=== PATIENT | female | born 1945 | race Caucasian/White ===

== ENCOUNTER → 2018-09-10 12:15 | Outpatient (CLI) | payer MEDICARE, OTHER, SELFPAY ==
[2018-09-10 12:44] LABS: Blood Urea Nitrogen 12 mg/dL (7-17); Estimated Glomerular Filt Rate > 60.0 mL/min (>60)
--- NOTE | 2018-09-10 12:45 | DI.CT.S_ITS ---
PROCEDURE: CT CHEST ABD PEL W CON INDICATIONS: Breast cancer staging TECHNIQUE: After the administration of oral and intravenous contrast, 5 mm thick sections acquired from the lung apices to the symphysis. 5 mm coronal and sagittal reformats were performed, with additional 7 mm coronal MIP reformats through the lungs. For radiation dose reduction, the following was used: automated exposure control, adjustment of mA and/or kV according to patient size. COMPARISON: None. FINDINGS: Image quality: Excellent. CHEST: Lungs and pleura: There is mild biapical scarring. Dependent atelectasis in posterior aspect of bilateral lung talbert is seen. Scarring/atelectasis is also seen scattered in the periphery of bilateral lung bases. 4 mm in soft tissue density nodule is seen in posterior medial aspect of right lower lobe series 3 image 32. No other discrete pulmonary nodule or mass is seen No pleural effusions or pneumothorax. Central and peripheral airways appear patent and normal in caliber. Mediastinum: Heart size is normal. No pericardial effusion. No mediastinal or hilar adenopathy by size criteria. Thoracic aorta and central pulmonary arteries are normal in size. Esophagus is normal in caliber. Moderate hiatal hernia. Chest wall: There is no left axillary adenopathy. No supraclavicular adenopathy. 4.8 x 3 cm soft tissue mass is noted in the right anterior chest wall deep to lateral right pectoralis major muscle with central area of necrosis. Prominent right axillary lymph nodes are seen measures up to 1.3 cm in short axis diameter. Thyroid gland is within normal limits. ABDOMEN: Solid organs: Liver is normal in size and enhancement. Gallbladder is within normal limits. Biliary system is non dilated. Pancreas enhances normally. Spleen is normal in size and enhancement. No adrenal nodules. Kidneys demonstrate normal size and enhancement, without hydronephrosis. Peritoneum and bowel: Bowel loops demonstrate normal wall thickness and caliber. No free fluid or air. Moderate hiatal hernia is seen. Nodes and vessels: No retroperitoneal or mesenteric adenopathy by size criteria. Aorta and inferior vena cava are normal in size. Miscellaneous: Supraumbilical hernia is seen containing a segment of mid transverse colon. No evidence of incarceration. PELVIS: Genitourinary: Bladder wall thickness is normal. Miscellaneous: There is no inguinal adenopathy. Bilateral inguinal hernias are seen containing fat only. Bones: No suspicious bony lesions. No vertebral body compression fractures. IMPRESSION: 1. 4.8 x 3 cm necrotic mass in lateral right anterior chest wall deep to right pectoralis major muscle, likely representing malignancy related to patient's known breast cancer. Enlarged lymph nodes seen in the right axilla suggestive of metastatic adenopathy. 2. No mediastinal adenopathy. No abdominal or pelvic adenopathy. 3. Biapical scarring and scattered scarring/atelectasis in bilateral lung talbert. A 4 mm nodular density in posterior medial aspect of left lower lobe right lower lobe, which may represent benign nodule. Metastatic lesion cannot be excluded. A followup study in 6 months is recommended for evaluation of stability. 4. No evidence of metastatic disease within abdomen or pelvis. Moderate-sized hiatal hernia. No free fluid or free air. Ventral hernia containing a segment of transverse colon, no evidence of incarceration. Bilateral inguinal hernia containing fat only. Dictated by: Von Murray M.D. on 09/10/2018 at 14:22 Approved by: Von Murray M.D. on 09/10/2018 at 14:31
== END ==
PROVIDERS: PCP Physician Assistant; Visit Provider Internal Medicine Hematology & Oncology
DX: C50.911 Malignant neoplasm of unspecified site of right female breast (principal); R22.2 Localized swelling, mass and lump, trunk; R59.0 Localized enlarged lymph nodes; J98.4 Other disorders of lung; K44.9 Diaphragmatic hernia without obstruction or gangrene
CPT/HCPCS: 36415; 71260; 74177; 82565; 84520; Q9967

== ENCOUNTER 2018-09-11 14:13 | Day surgery (SDC) | payer MEDICARE, OTHER, SELFPAY ==
[2018-09-09 09:21] VITALS: BMI 26.8
--- NOTE | 2018-09-11 | DI.RAD.S_ITS ---
PROCEDURE: XR CHEST 1V INDICATIONS: PORT A CATH INSERTION TECHNIQUE: One view of the chest was acquired. COMPARISON: None. FINDINGS: A single fluoroscopy image demonstrates the tip of a catheter in the area of SVC. IMPRESSION: The tip of the central venous catheter is in the area of SVC. Dictated by: Lizz Robledo M.D. on 09/11/2018 at 16:58 Approved by: Lizz Robledo M.D. on 09/11/2018 at 17:02
--- NOTE | 2018-09-11 | DI.RAD.S_ITS ---
PROCEDURE: XR CHEST 1V INDICATIONS: POST OP PORT A CATH INSERTION TECHNIQUE: One view of the chest was acquired. COMPARISON: [facility], CR, XR CHEST 1V, 09/11/2018, 16:29. FINDINGS: Surgical changes and devices: Left chest wall Port-A-Cath with tip projecting to the mid SVC. Lungs and pleura: No pleural effusions or pneumothorax. Lungs are clear. Mediastinum: Mediastinal contours appear normal. Heart size is normal. Bones and chest wall: No suspicious bony lesions. Overlying soft tissues appear unremarkable. IMPRESSION: No acute cardiopulmonary disease process. Dictated by: Estela Valdez MD, PhD on 09/11/2018 at 16:23 Approved by: Estela Valdez MD, PhD on 09/11/2018 at 16:24
[2018-09-11 15:05] VITALS: BP 154/73; PULSE 80; RESP 18; TEMP 36.6; O2SAT 98; BMI 26.6
[2018-09-11] MEDS: LACTATED RINGERS 1,000 ML 42 ML IV (15:05)
--- NOTE | 2018-09-11 15:40 | SUR.OPER ---
Supine on padded OR bed, head on pillow, left arm padded and tucked at side, legs uncrossed, safety belt at thigh, tape over blanket over lower legs .
[2018-09-11] MEDS: CEFAZOLIN 2 GM/100 ML FROZ.PIGGY IV (16:08)
[2018-09-11] MEDS: SODIUM CHLORIDE 0.9% FLUSH 10 ML IV (16:26)
[2018-09-11] MEDS: LIDOCAINE 1% W/EPI INJ 20 ML INJ (16:39)
[2018-09-11] MEDS: BUPIVACAINE 0.5% (PF) VIAL 30 ML INJ (16:39)
--- NOTE | 2018-09-11 16:46 | PM.OP.1 ---
Operative Date/Time/Diagnoses Date of procedure: 09/11/18 Time of procedure: 16:46 Pre-op diagnosis: Locally advanced breast cancer Post-op diagnosis: same Procedure & Clinicians Procedure: Left Subclavian Power Port Placement Same procedure as scheduled: Yes Indications: Locally advanced breast cancer Surgeon: Chasity Wilson Click Yes if Unassisted: Yes Anesthesia Type: MAC +/- (Goetter) and Local Operative Notes Findings: Power port in good position in the superior vena cava Closure Type: primary Specimen(s): none sent Implants & Drains: Low-profile power port Estimated Blood Loss (mL): 5 Procedure in detail: After obtaining informed consent, the patient was brought to the operating room and placed in the supine position on the operating table. Following successful induction of general endotracheal anesthesia, appropriate padding of all bony prominences, and placement of appropriate monitors, the left chest was prepped and draped in a standard surgical fashion. A timeout was held per SCOAP protocol. A mixture of local anesthetics was infiltrated in the deltopectoral groove on the left side. The right subclavian vein was accessed via the Seldinger technique and a wire was gently placed into the vein. Fluoroscopy was used to verify position of the wire in the subclavian vein. We next created a pocket of approximately 2 cm inferior to the access site of the vein. This was checked for size and found to fit the port nicely. The included tunneling device was used to place the tubing and the pocket connecting it to the access site of the subclavian vein. The tubing was trimmed to an appropriate length and connected to the Port-A-Cath. The Port-A-Cath was sewn into place in the pocket using interrupted Prolene sutures. The pocket was closed in 2 layers. The dilator and introducer were then gently passed over the wire and into the subclavian vein. The wire and dilator were removed leaving only the introducer. The tubing was then placed in the introducer and the introducer removed per marketing writer's directions. The port was then flushed with saline solution and found to be functional and in good position. It was then hep-locked with 2000 units of heparin. The incision was closed in 2 layers with Vicryl and Monocryl sutures. Dermabond was applied to the skin. All sponge, needle, and instrument counts were correct at the conclusion of the case. Patient was allowed to awaken from anesthesia and taken to the post-anesthesia care unit in good condition. Complications: none Condition: stable Disposition: PACU Plan for aftercare: 1. Discharge to home 2. The port is ready for use
--- NOTE | 2018-09-11 16:49 | P.OP_ITS ---
Operative Date/Time/Diagnoses Date of procedure: 09/11/18 Time of procedure: 16:46 Pre-op diagnosis: Locally advanced breast cancer Post-op diagnosis: same Procedure & Clinicians Procedure: Left Subclavian Power Port Placement Same procedure as scheduled: Yes Indications: Locally advanced breast cancer Surgeon: Chasity Wilson Click Yes if Unassisted: Yes Anesthesia Type: MAC +/- (Goetter) and Local Operative Notes Findings: Power port in good position in the superior vena cava Closure Type: primary Specimen(s): none sent Implants & Drains: Low-profile power port Estimated Blood Loss (mL): 5 Procedure in detail: After obtaining informed consent, the patient was brought to the operating room and placed in the supine position on the operating table. Following successful induction of general endotracheal anesthesia, appropriate padding of all bony prominences, and placement of appropriate monitors, the left chest was prepped and draped in a standard surgical fashion. A timeout was held per SCOAP protocol. A mixture of local anesthetics was infiltrated in the deltopectoral groove on the left side. The right subclavian vein was accessed via the Seldinger technique and a wire was gently placed into the vein. Fluoroscopy was used to verify position of the wire in the subclavian vein. We next created a pocket of approximately 2 cm inferior to the access site of the vein. This was checked for size and found to fit the port nicely. The included tunneling device was used to place the tubing and the pocket connecting it to the access site of the subclavian vein. The tubing was trimmed to an appropriate length and connected to the Port-A-Cath. The Port-A-Cath was sewn into place in the pocket using interrupted Prolene sutures. The pocket was closed in 2 layers. The dilator and introducer were then gently passed over the wire and into the subclavian vein. The wire and dilator were removed leaving only the introducer. The tubing was then placed in the introducer and the introducer removed per horse riding coach or instructor's directions. The port was then flushed with saline solution and found to be functional and in good position. It was then hep- locked with 2000 units of heparin. The incision was closed in 2 layers with Vicryl and Monocryl sutures. Dermabond was applied to the skin. All sponge, needle, and instrument counts were correct at the conclusion of the case. Patient was allowed to awaken from anesthesia and taken to the post-anesthesia care unit in good condition. Complications: none Condition: stable Disposition: PACU Plan for aftercare: 1. Discharge to home 2. The port is ready for use
[2018-09-11 16:50] VITALS: BP 134/61; PULSE 76; RESP 14; TEMP 36.3; O2SAT 95
--- NOTE | 2018-09-11 16:53 | SUR.PHASEII ---
Phase 2 done in PACU due to need for XRay post op.
[2018-09-11 16:55] VITALS: BP 129/65; PULSE 76; RESP 15; O2SAT 100
[2018-09-11 17:05] VITALS: BP 136/64; PULSE 68; RESP 20; O2SAT 100
--- NOTE | 2018-09-16 16:24 | PM.HP.1 ---
History of Present Illness Date Patient Seen: 09/11/18 Time Patient Seen: 10:25 Chief complaint: [id number] PORT-A-CATH PLACEMENT Narrative: Very pleasant and unfortunate 73-year-old lady who presents today for Port-A-Cath placement. She was recently found to have locally advanced breast cancer involving the right breast and chest wall. She has already spoken with Dr Rodas and is planning for chemotherapy. She will need a Port-A-Cath or other [id number]-Bbpo to facilitate this process. Patient History Medical History Breast cancer, right breast (Acute 08/2018) History of headache (Chronic) Hyperlipidemia (Chronic) Hypertension (Chronic) Hypothyroidism (Chronic) Pain (Chronic) Former smoker (Resolved) Surgical menopause (Resolved) Surgical History History of hysterectomy (Resolved ~1992) History of left cataract surgery (Resolved 11/25/15) History of right cataract surgery (Resolved 03/23/16) Status post hernia repair (Resolved 01/2015) Status post hernia repair (Resolved 03/2014) Status post hernia repair (Resolved 08/2013) Family & Social History Family History: Reviewed 09/16/18 by Chasiyt Wilson MD Social History: household members spouse Tobacco & Substance use: Smoking Status Former smoker alcohol intake current alcohol intake frequency 0-2 drinks per day Substance Use Type does not use Meds Home Medications Medication Instructions Recorded Confirmed Type ASPIRIN (#ASPIRIN) 325 mg PO Q DAY #0 08/19/12 09/13/18 History CHOLECALCIFEROL (VITAMIN D) 2,000 iu PO Q DAY #0 08/19/12 09/13/18 History GLUC PETERSEN DIPO CH/VLADIMIR PETERSEN/C/TORIE 1 cap PO Q DAY #0 08/19/12 09/13/18 History (Glucosamine-Chondroitin Capsul) dorzolamide-timolol [Cosopt] 1 drp OPHTH BID #0 08/19/12 09/13/18 History FOLIC ACID/VIT A/VIT B1/VIT 1 tab PO Q DAY #0 08/20/12 09/13/18 History (#MULTIVITAMIN) Diphenhydramine Hydrochloride 1 - 2 cap PO Q DAY PRN #0 08/21/12 09/13/18 History (BENADRYL) ibuprofen [Advil] 400 mg PO PRN PRN #0 02/24/13 09/13/18 History simvastatin [Zocor] 20 mg PO HS #90 tab 09/26/17 09/13/18 Rx triamterene-hydrochlorothiazid 1 cap PO Q DAY #90 cap 09/26/17 09/13/18 Rx [Dyazide] levothyroxine [Synthroid] 0.175 mg PO QDAY #90 tab 03/04/18 09/13/18 Rx Calcium/Vitamin D3 See Label Instructions .ROUTE 08/01/18 09/13/18 History .COMPLEX lidocaine-prilocaine See Label Instructions .ROUTE 09/11/18 09/13/18 Rx .COMPLEX #30 gram oxycodone-acetaminophen [Percocet] 1 tab PO Q4-6H PRN #20 tab 09/11/18 09/13/18 Rx Allergies Allergy/AdvReac Type Severity Reaction Status Date / Time adhesive tape [ADHESIVE TAPE] AdvReac Intermediate ITCHY RASH Verified 09/09/18 09:24 IF LEFT ON TOO LONG Review of Systems Review of Systems All systems reviewed & are unremarkable except as noted in HPI and below Exam Vital Signs (past 8 hours): Oxygen Delivery Method Room Air Narrative Exam Narrative: Pleasant elderly lady in no distress HEENT: Normocephalic and atraumatic, pupils equal round reactive to light accommodation with anicteric sclera Lungs: Clear to auscultation bilaterally Heart: Regular rate and rhythm without murmur rub or gallop Abdomen: Soft and nontender with active bowel sounds Extremities: Warm well perfused Assessment & Plan Plan: Assessment/Plan Narrative: Pleasant 73-year-old lady with locally advanced right breast cancer. We discussed the risks and benefits of right Port-A-Cath placement and the patient expressed a desire to complete the procedure today.
--- NOTE | 2018-09-25 15:33 | PC.NURSE ---
Pt called to report that she has not yet been schd for and ultra sound bx and marker placement. She stated she had reached out to Dr Anderson office but has not heard anything as of yet. After much searching, it was discovered that Dr Wilson who she saw has ordered the procedure, but has not yet been scheduled. The US that is scheduled for 09/27 was previously ordered by Lisha Mckeon as a follow up from an abnormal Mammo on 09/09. I explained this to her and that Lisha Mckeon would need to cancel this since she placed the original order. I also told her that radiology would be calling her with her appt for the procedure Dr Wilson ordered
== END 2018-09-11 17:29 | disposition home or self-care (01) ==
PROVIDERS: PCP Physician Assistant; Visit Provider Surgery
PROC: (CPT 36561; principal; 2018-09-11 15:00)
DX: C50.911 Malignant neoplasm of unspecified site of right female breast (principal); Z45.2 Encounter for adjustment and management of vascular access device; Z87.891 Personal history of nicotine dependence; E78.5 Hyperlipidemia, unspecified; I10 Essential (primary) hypertension; E03.9 Hypothyroidism, unspecified
CPT/HCPCS: 36561; 71045; 76000; C1788; J0690; J1644; J2704

== ENCOUNTER → 2018-09-20 14:33 | Outpatient (CLI) | payer MEDICARE, OTHER, SELFPAY ==
--- NOTE | 2018-09-20 11:13 | DI.MRI.S_ITS ---
PROCEDURE: MR ABDOMEN WO/W CON INDICATIONS: evaluate liver lesion TECHNIQUE: Coronal HASTE, axial 2D FLASH in- and [id number]; axial breath-hold T2 FSE. Dynamic axial VIBE during the administration of contrast; post-contrast coronal VIBE or 2D FLASH with fat saturation from the hepatic dome to the iliac crests. Optional diffusion weighted imaging and ADC may be performed. COMPARISON: [facility], MR, MR BREAST BILATERAL WITH CAD, 09/17/2018, 10:49. [facility], CT, CT CHEST ABD PEL W CON, 09/10/2018, 13:09. FINDINGS: Image quality: Excellent. Lung bases: No basal pleural effusions. Heart size is normal. Solid organs: Liver is normal in size and enhancement. An 8 mm diameter hypervascular lesion is present within hepatic segment IVB. This demonstrates hypervascularity on the arterial phase, portal venous phase, and delayed phase studies. This lesion is hyperintense on the diffusion weighted study and demonstrates T2 hyperintensity as well. Gallbladder is unremarkable. Biliary system is non dilated. Pancreas is normal in morphology. Spleen is normal in size and enhancement. No adrenal nodules. Both kidneys demonstrate normal size and enhancement, without hydronephrosis. Nodes and vessels: No retroperitoneal or mesenteric adenopathy by size criteria. Aorta and inferior vena cava are normal in size. Bowel and peritoneum: Unenhanced bowel loops are normal in caliber. No free fluid. Bones and soft tissues: No ventral hernias. Bone marrow is normal in overall signal. IMPRESSION: 1. Small hepatic hemangioma within hepatic segment IVB as above. No findings to suggest hepatic metastasis. Dictated by: Megan Tapia M.D. on 09/20/2018 at 17:10 Approved by: Megan Tapia M.D. on 09/20/2018 at 17:20
== END ==
PROVIDERS: PCP Physician Assistant; Visit Provider Internal Medicine Hematology & Oncology
DX: C50.911 Malignant neoplasm of unspecified site of right female breast (principal); K76.9 Liver disease, unspecified
CPT/HCPCS: 74183; A9579

== ENCOUNTER → 2018-09-27 14:35 | Outpatient (CLI) | payer MEDICARE, OTHER, SELFPAY ==
--- NOTE | 2018-09-27 14:36 | DI.US.S_ITS ---
ULTRASOUND OF RIGHT BREAST: 09/27/2018 CLINICAL: Patient returns for additional imaging over a suspected mass in the right breast. Comparison is made to exams dated: 09/17/2018 breast MRI - [facility], 08/20/2018 mammogram, and 08/20/2018 ultrasound - [facility]. Real-time ultrasound of the right breast was performed on the areas of interest. Wallace scale images of the real-time examination were reviewed. IMPRESSION: SUSPICIOUS OF MALIGNANCY There is no sonographic abnormality seen in the right breast to correspond with the breast MRI finding at 4 o'clock. Based on MRI findings, neoplasm cannot be excluded. If breast conservation is desired, MRI guided biopsy is recommended to further characterize this finding and exclude multicentric disease. This exam was interpreted at Station ID: [id number]. Electronically Signed By: Megan Tapia M.D. lk/:09/27/2018 16:37:49 letter sent: Biopsy Required Ultrasound BI-RADS: 4 Suspicious abnormality
== END ==
PROVIDERS: PCP Physician Assistant; Visit Provider Physician Assistant
DX: R92.8 Other abnormal and inconclusive findings on diagnostic imaging of breast (principal); N63.14 Unspecified lump in the right breast, lower inner quadrant
CPT/HCPCS: 76642

== ENCOUNTER → 2018-10-02 12:39 | Outpatient (CLI) | payer MEDICARE, OTHER, SELFPAY ==
--- NOTE | 2018-10-02 12:41 | DI.ECHO.S_ITS ---
Echocardiogram Report + + :Name: KATHLEEN BROCK Study Date: 10/02/2018 Height: 65 in : :[facility] Weight: 150 lb: : Gender: Female BSA: 1.8 m2 : :: 1945 Age: 73 yrs : :Reason For Study: PRE CHEMO : : Performed By: Roshni De La Torre : :Referring: GUADALUPE YATES : + + Interpretation Summary The left ventricle is normal in size. The ejection fraction is estimated to be 60-65%. The right ventricle is mildly dilated. The right ventricular systolic function is normal. No significant valvular pathology. There is no pericardial effusion. Procedure: A two-dimensional transthoracic echocardiogram with color flow and Doppler was performed. The study quality was technically adequate. There is no prior echocardiogram noted for this patient. A contrast injection of Definity was performed to improve assessment of LV function. The heart rate ranged between 73-80 bpm during the study. Left Ventricle: The left ventricle is normal in size. Proximal septal thickening is noted. There is no echo evidence for significant left ventricular outflow tract obstruction. There is no thrombus. The ejection fraction is estimated to be 60-65%. There are no focal wall motion abnormalities. Diastolic parameters suggest a relaxation abnormality of the left ventricle, consistent with probable normal filling pressures. Right Ventricle: The right ventricle is mildly dilated. The right ventricular systolic function is normal. Atria: Both atria are normal in size. There is no Doppler evidence for an interatrial shunt. Mitral Valve: The mitral valve is normal in structure and function. There is trace mitral regurgitation. Aortic Valve: The aortic valve is trileaflet. The aortic valve opens well. There is no aortic valve stenosis. Tricuspid Valve: The tricuspid valve is normal in structure and function. Pulmonary artery pressures cannot be estimated because of the lack of a measurable TR jet velocity. There is trace tricuspid regurgitation. Pulmonic Valve: The pulmonic valve is normal in structure and function. There is a trace or physiologic amount of pulmonic regurgitation. Great Vessels: The aortic root is normal size. The ascending aorta is normal in size. The aortic arch is normal in size. The pulmonary artery is normal size. The IVC is of normal diameter and collapses greater than 50% with a sniff. This suggests a low right atrial pressure of 3 mm Hg. Pericardium/ Pleura There is no pericardial effusion. There is an anterior echo-free space consistent with a fat pad. There is no pleural effusion. MMode/2D Measurements & Calculations LVIDd: 4.4 cm LVOT diam: 2.2 cm LVIDs: 3.4 cm Ao root diam: 3.3 cm FS: 23.4 % asc Aorta Diam: 3.4 cm IVSd: 1.0 cm Ao Arch Diam (Prox Trans): 2.3 cm LVPWd: 0.83 cm LV busby. diameter/BSA (cm/m^2): 2.5 LV sys. diameter/BSA (cm/m^2): 1.9 LA A2 area: 17.9 cm2 RA long axis: 4.0 cm LA A4 area: 15.4 cm2 RA area: 14.2 cm2 LA length (vol): 4.7 cm RA vol: 42.6 ml LA vol: 49.9 ml RA : 24.3 ml/m2 LA vol index: 28.5 ml/m2 IVC diam: 1.4 cm RVD1 (basal): 2.5 cm TAPSE: 1.7 cm Doppler Measurements & Calculations Ao V2 max: 96.4 cm/sec LVOT Max Howard: 92.1 cm/sec Ao V2 mean: 74.9 cm/sec LV V1 max P.4 mmHg Ao max P.7 mmHg LV V1 VTI: 19.8 cm Ao mean P.4 mmHg LAM(I,D): 3.7 cm2 Ao V2 VTI: 20.8 cm LAM(V,D): 3.7 cm2 sev ratio: 0.96 LAM indexed to BSA (cm^2/m^2): 2.1 MV E max howard: 44.1 cm/sec MV A max howard: 87.9 cm/sec MV E/A: 0.50 Med Peak E' Howard: 6.0 cm/sec E/E' med: 7.3 Lat Peak E' Howard: 5.8 cm/sec E/E' lat: 7.6 E/e' average: 7.5 MV dec time: 0.28 sec _ Reading Physician:ARACELI
== END ==
PROVIDERS: PCP Physician Assistant; Visit Provider Internal Medicine Hematology & Oncology
DX: C50.911 Malignant neoplasm of unspecified site of right female breast (principal); Z92.21 Personal history of antineoplastic chemotherapy
CPT/HCPCS: 93306

== ENCOUNTER → 2018-11-22 10:50 | Outpatient (CLI) | payer MEDICARE, OTHER, SELFPAY ==
--- NOTE | 2018-11-22 11:10 | DI.CT.S_ITS ---
PROCEDURE: CT CHEST W CON INDICATIONS: restaging TECHNIQUE: After the administration of intravenous contrast, 5 mm thick sections acquired from the pulmonary apices to the posterior costophrenic angles. 7 mm thick coronal and sagittal MIP reformats were acquired. For radiation dose reduction, the following was used: automated exposure control, adjustment of mA and/or kV according to patient size. COMPARISON: [facility], CT, CT CHEST ABD PEL W CON, 09/10/2018, 13:09. FINDINGS: Image quality: Excellent. Lungs and pleura: Biapical scarring is again seen. Previously described 4 mm soft tissue density nodule in posterior medial aspect of right lower lobe is unchanged in size and appearance. Dependent atelectasis in posterior aspect of bilateral lung talbert are seen. Ill-defined scarring/atelectasis scattered in the periphery of bilateral lung bases are again seen. No new pulmonary nodule or mass is seen. No pleural effusions or pneumothorax. Central and peripheral airways are patent and normal in caliber. Mediastinum: Heart size is normal. No pericardial effusion. No mediastinal or hilar adenopathy by size criteria. Thoracic aorta and central pulmonary arteries are normal in size. Esophagus is normal in caliber. Small to moderate hiatal hernia is present. Bones and chest wall: Left chest wall Port-A-Cath is seen. No supraclavicular lymphadenopathy. No left axillary adenopathy. Previously described 4.8 x 3 cm soft tissue mass in right anterior chest wall deep to lateral right pectoralis major muscle is again seen now measures 3.8 x 2.4 cm in size. Previously described prominent right axillary lymph nodes are smaller in size and now measures up to 5 mm in size. No suspicious bony lesions. No vertebral body compression fractures. Thyroid gland is within normal limits. Abdomen: Visualized upper abdominal solid organs appear normal. Upper abdominal bowel loops are normal in caliber. IMPRESSION: 1. Stable 4 mm right lower lobe pulmonary nodule. No new pulmonary nodule or mass is seen. Dependent atelectasis and scarring in bilateral lung talbert. No pleural effusion or pneumothorax. Airways patent. 2. Interval resolution of previously noted right axillary lymphadenopathy. Interval decrease in size of patient's known right anterior chest wall soft tissue mass, now measures 3.8 x 2.4 cm in size. 3. No mediastinal or hilar adenopathy. Dictated by: Von Murray M.D. on 11/22/2018 at 14:49 Approved by: Von Murray M.D. on 11/22/2018 at 14:56
== END ==
PROVIDERS: PCP Physician Assistant; Visit Provider Nurse Practitioner Gerontology
DX: C50.911 Malignant neoplasm of unspecified site of right female breast (principal); R91.1 Solitary pulmonary nodule
CPT/HCPCS: 71260; Q9967

== ENCOUNTER → 2019-01-03 11:42 | Outpatient (CLI) | payer MEDICARE, OTHER, SELFPAY ==
--- NOTE | 2019-01-03 11:43 | DI.CT.S_ITS ---
PROCEDURE: CT CHEST W CON INDICATIONS: Restaging breast cancer TECHNIQUE: After the administration of intravenous contrast, 5 mm thick sections acquired from the pulmonary apices to the posterior costophrenic angles. 7 mm thick coronal and sagittal MIP reformats were acquired. For radiation dose reduction, the following was used: automated exposure control, adjustment of mA and/or kV according to patient size. COMPARISON: [facility], US, US BREAST RT LIMITED, 09/27/2018, 15:23. [facility], CT, CT CHEST ABD PEL W CON, 09/10/2018, 13:09. [facility], CT, CT CHEST W CON, 11/22/2018, 11:05. FINDINGS: Image quality: Excellent. Lungs and pleura: No acute air space opacities. No pleural effusions or pneumothorax. Central and peripheral airways are patent and normal in caliber. Mediastinum: Heart size is normal. No pericardial effusion. No mediastinal or hilar adenopathy by size criteria. Thoracic aorta and central pulmonary arteries are normal in size. Esophagus is normal in caliber. No hiatal hernia. Bones and chest wall: No suspicious bony lesions. The soft tissue metastases in the subpectoral region of the right chest superiorly has diminished in size, previously measuring 4.8 x 3.0 cm 09/10/18 and currently measuring 3.5 x 1.9 cm. This is best seen centered on series 2 image 17. The adjacent moderately enlarged lymph nodes at the right axilla have resolved. Note is made of a Port-A-Cath from left sided approach extending in the normal position into the origin of the superior vena cava. No vertebral body compression fractures. No axillary or supraclavicular adenopathy by size criteria. Thyroid gland appears normal where well visualized. Abdomen: Visualized upper abdominal solid organs appear normal. Upper abdominal bowel loops are normal in caliber. IMPRESSION: Significant reduction in size of a subpectoral right chest ovoid mass lesion previously identified in August of 2018. Adjacent adenopathy on the right at the anterior axilla has resolved. No new osseous or soft tissue metastatic disease is seen. Port-A-Cath from a left-sided approach extends in normal position to the origin of the superior vena cava. Dictated by: Darryl Bhakta M.D. on 01/03/2019 at 12:24 Approved by: Darryl Bhakta M.D. on 01/03/2019 at 12:33
== END ==
PROVIDERS: PCP Physician Assistant; Visit Provider Nurse Practitioner Gerontology
DX: C50.911 Malignant neoplasm of unspecified site of right female breast (principal); C79.89 Secondary malignant neoplasm of other specified sites
CPT/HCPCS: 71260

== ENCOUNTER → 2019-03-10 13:53 | Outpatient (CLI) | payer MEDICARE, OTHER, SELFPAY ==
--- NOTE | 2019-03-10 14:05 | DI.CT.S_ITS ---
PROCEDURE: CT CHEST ABD PEL W CON INDICATIONS: BREAST CANCER, RESTAGING AFTER CHEMO TECHNIQUE: After the administration of oral and intravenous contrast, 5 mm thick sections acquired from the lung apices to the symphysis. 5 mm coronal and sagittal reformats were performed, with additional 7 mm coronal MIP reformats through the lungs. For radiation dose reduction, the following was used: automated exposure control, adjustment of mA and/or kV according to patient size. COMPARISON: [facility], CT, CT CHEST W CON, 11/22/2018, 11:05. [facility], CT, CT CHEST W CON, 01/03/2019, 11:43. [facility], CT, CT CHEST ABD PEL W CON, 09/10/2018, 13:09. FINDINGS: Image quality: Excellent. CHEST: Lungs and pleura: There is stable appearance of mild stranding within the anterior inferior border of the lower lungs bilaterally, medial segment right middle lobe and lingular segment left upper lobe margins. There is, however, a new finding within the more superior medial aspect of the right middle lobe medial segment where a masslike structure appears to have developed within the lung parenchyma itself abutting the anterior pleural surface, measuring up to 1.0 cm AP and 1.7 cm transverse, with a craniocaudad length of approximately 1.2 cm. This area was normal on CT scanning 01/03/19. No pleural effusions or pneumothorax. Central and peripheral airways appear patent and normal in caliber. No pulmonary metastatic disease is suspected. Mediastinum: Heart size is normal. No pericardial effusion. No mediastinal or hilar adenopathy by size criteria. Thoracic aorta and central pulmonary arteries are normal in size. Esophagus is normal in caliber. No hiatal hernia. A Port-A-Cath from a left-sided approach extends in normal position into the superior vena cava as has been previously the case. Chest wall: No axillary or supraclavicular adenopathy by size criteria. Thyroid gland appears normal where well visualized. The subpectoral right-sided mass lesion continues to diminish in size and contrast enhancement, previously having been rounded and discrete as a metastatic mass, and bowel containing small amounts of internal calcification and measuring an estimated 2.7 cm transverse and 1.4 centimeters AP. ABDOMEN: Solid organs: Liver is normal in size and enhancement except for the finding of a subtle left lateral hepatic segment hypodensity in an area previously normal, seen on CT series 2 image 67, measuring only 1.3 cm in maximal axial dimension. Gallbladder appears normal. Biliary system is non dilated. Pancreas enhances normally. Spleen is normal in size and enhancement. No adrenal nodules. Kidneys demonstrate normal size and enhancement, without hydronephrosis. Peritoneum and bowel: Bowel loops demonstrate normal wall thickness and caliber. No free fluid or air. Nodes and vessels: No retroperitoneal or mesenteric adenopathy by size criteria. Aorta and inferior vena cava are normal in size. Miscellaneous: Again noted is a ventral hernia at the abdomen/pelvis junction through which a colon loop crosses, without evidence of incarceration or strangulation.. PELVIS: Genitourinary: Bladder wall thickness is normal. Miscellaneous: No inguinal hernias or adenopathy. A ventral hernia as discussed above. Bones: No suspicious bony lesions. No vertebral body compression fractures. IMPRESSION: 1. Slight interval reduction in size of a subpectoral right-sided chest wall metastatic lesion previously significantly larger and heterogeneously contrast enhancing. 2. New finding of a pulmonary mass like structure within the right middle lobe medial segment abutting the anterior pleural surface, centered within the periphery of the lung tissue itself rather than representing a pleural or chest wall mass. This structure is worrisome for representing pulmonary metastatic disease in this clinical circumstance. 3. A subtle new liver lesion has developed within the subcapsular left lateral hepatic segment measuring only approximately 1.3 cm in an area that had appeared normal 01/03/19. This structure may be visible by targeted single organ ultrasound. Dictated by: Darryl Bhakta M.D. on 03/10/2019 at 15:00 Approved by: Darryl Bhakta M.D. on 03/10/2019 at 15:19
== END ==
PROVIDERS: PCP Physician Assistant; Visit Provider Internal Medicine Hematology & Oncology
DX: C50.911 Malignant neoplasm of unspecified site of right female breast (principal)
CPT/HCPCS: 71260; 74177; Q9967

== ENCOUNTER → 2019-10-27 10:29 | Outpatient (CLI) | payer MEDICARE, OTHER, SELFPAY | PROVIDERS: PCP Physician Assistant; Visit Provider Physician Assistant | DX: Z12.11 Encounter for screening for malignant neoplasm of colon (principal) | CPT/HCPCS: 82274 ==

== ENCOUNTER → 2019-12-29 10:52 | Outpatient (CLI) | payer MEDICARE, OTHER, SELFPAY ==
--- NOTE | 2019-12-29 10:56 | DI.CT.S_ITS ---
PROCEDURE: CT CHEST WO CON INDICATIONS: lung nodule followup. TECHNIQUE: Noncontrast 2.0-2.5 mm thick sections acquired from the pulmonary apices to the posterior costophrenic angles. 7 mm thick axial MIP and 5 mm coronal and sagittal reformats were then acquired. A low radiation dose technique was utilized. COMPARISON: [facility], CT, CT RANDALL, 07/03/2019, 12:57. [facility], CT, CT CHEST W CON, 01/03/2019, 11:43. [facility], CT, CT CHEST ABD PEL W CON, 03/10/2019, 14:15. [facility], [place], NM PET CT FUSION SKULL 2 THIGH, 04/02/2019, 15:52. FINDINGS: Image quality: Diagnostic, given the low radiation dose technique. Lungs and pleura: There is a 5 mm nodule adjacent to a surgical clip in the right right middle lobe within the right cardiophrenic angle. On the last chest CT dated 03/10/2019, there was a 1.3 x 1.8 cm mass in the area, which is no longer present. There are new subleural infiltrates and nodules as well as subpleural septal thickening in the right anterior lung. Small subpleural nodules are also seen in lingula, unchanged, likely inflammatory/infectious in etiology. Mediastinum: Heart size is normal. No pericardial effusion. No mediastinal adenopathy by size criteria. Thoracic aorta and central pulmonary arteries are normal in size. Esophagus is normal in caliber. Small hiatal hernia. Bones and chest wall: There are multiple surgical clips in the right anterior chest wall and axilla. No suspicious bony lesions. No vertebral body compression fractures. No axillary or supraclavicular adenopathy by size criteria. Thyroid gland is normal. There is a Port-A-Cath in the left anterior chest. Abdomen: Visualized upper abdomen solid organs and bowel loops appear normal in the absence of contrast. IMPRESSION: 1. A 5 mm nodule is present adjacent to a surgical clip in the right right middle lobe within the right cardiophrenic angle. On the prior chest CT dated 03/10/2019, there was a 1.3 x 1.8 cm mass in the area, which is no longer present. 2. New subleural infiltrates and nodules as well as subpleural septal thickening in the right anterior lung, presumably secondary to post radiation changes. Recommend clinical correlation and follow. 3. Small subpleural nodules are in lingula are stable. Fleischner Society criteria for SOLID lung nodule followup. Nodule size (mm)Low-risk patientHigh-risk patient<6 (single or multiple)No routine followup.Optional CT at 12 months. 6-8 (single or multiple)CT at 6-12 months, then optional CT at 18-24 mo.CT at 6-12 months, then CT at 18-24 months. >8 (single)CT at 3 months, PET-CT, or biopsy. Same as for low-risk pts. >8 (multiple)CT at 3-6 months, then optional CT at 18-24 mo.CT at 3-6 months, then CT at 18-24 months. Fleischner Society criteria for SUB-SOLID lung nodule followup. Solitary pure ground-glass nodules<6 mm (ground glass or part solid)No followup needed. 6 mm or larger (ground glass)CT at 6-12 months to confirm persistence, then CT every 2 years until 5 years.6 mm or larger (part solid)CT at 3-6 months to confirm persistence, then annual CT until 5 years if unchanged and solid component remains <6 mm. Multiple sub-solid nodules<6 mmCT at 3-6 months, then CT consider at 2 & 4 years for high risk patients. [address] at 3-6 months. Subsequent management based on most suspicious lesions. Recommendations do not apply to lung cancer screening, patients with immunosuppression, or patients with known primary cancer. Dictated by: Lizz Robledo M.D. on 12/29/2019 at 16:11 Approved by: Lizz Robledo M.D. on 12/29/2019 at 18:34
== END ==
PROVIDERS: PCP Physician Assistant; Referring Provider Internal Medicine Hematology & Oncology; Visit Provider Internal Medicine Hematology & Oncology
DX: C50.911 Malignant neoplasm of unspecified site of right female breast (principal); R92.8 Other abnormal and inconclusive findings on diagnostic imaging of breast; K44.9 Diaphragmatic hernia without obstruction or gangrene
CPT/HCPCS: 71250

== ENCOUNTER → 2020-04-16 11:54 | Outpatient (CLI) | payer MEDICARE, OTHER, SELFPAY ==
--- NOTE | 2020-04-16 11:58 | DI.CT.S_ITS ---
PROCEDURE: CT CHEST W CON INDICATIONS: lung nodule TECHNIQUE: After the administration of intravenous contrast, 5 mm thick sections acquired from the pulmonary apices to the posterior costophrenic angles. 1 mm axial lung, 5 mm thick coronal and sagittal reformats and 7 mm axial MIP were acquired. For radiation dose reduction, the following was used: automated exposure control, adjustment of mA and/or kV according to patient size. COMPARISON: [facility], CT, CT CHEST ABD PEL W CON, 03/10/2019, 14:15. [facility], [place], [place] PET CT FUSION SKULL 2 THIGH, 04/02/2019, 15:52. [facility], CT, CT CHEST WO CON, 12/29/2019, 11:13. [facility], CT, CT CHEST W CON, 01/03/2019, 11:43. FINDINGS: Image quality: Excellent. Lungs and pleura: There is a scarlike density in the right middle lobe adjacent to surgical suture/clip. A 5 mm nodular density adjacent to the surgical clip appears unchanged. There is no recurrent mass. Previously seen subtle infiltrates are no longer present. Subpleural nodular densities in the lingula are unchanged. There are several small right lung nodules as listed below, unchanged. Nodule #1: 4 mm; RML: series 3 image 185; Nodule #2: 3 mm; RML; series 3 image 197; Nodule #3: 4 mm; RLL; series 3 image 201; Nodule #4: 3 mm; RLL; series 3 image 152; No acute air space opacities. No pleural effusions or pneumothorax. Central and peripheral airways are patent and normal in caliber. Mediastinum: Heart size is normal. No pericardial effusion. No mediastinal or hilar adenopathy by size criteria. Thoracic aorta and central pulmonary arteries are normal in size. Esophagus is normal in caliber. There is a small hiatal hernia. Bones and chest wall: No suspicious bony lesions. No vertebral body compression fractures. No axillary or supraclavicular adenopathy by size criteria. Thyroid gland is normal. Abdomen: Visualized upper abdominal solid organs appear normal. Upper abdominal bowel loops are normal in caliber. IMPRESSION: 1. Postsurgical changes in the right middle lobe with a scarlike density. No findings to suggest recurrent mass. 2. Small subcentimeter nodules in right lung are stable. 3. No mediastinal or hilar lymphadenopathy. Dictated by: Lizz Robledo M.D. on 04/16/2020 at 13:59 Transcribed by: ROGER on 04/16/2020 at 14:26 Approved by: Lizz Robledo M.D. on 04/16/2020 at 18:30
[2020-04-16 12:20] LABS: Add Manual Diff / Slide Review NO; Basophils Absolute Auto 0 /uL (0-100); Eosinophils Absolute Auto 300 /uL (0-450); Eosinophils Percent Auto 6.8 % (2-4); Hematocrit 43.7 % (36-46); Hemoglobin 15.6 g/dL (12.0-16.0); Lymphocytes Absolute Auto 800 /uL (1100-4500); Lymphocytes Percent Auto 17.3 % (25-40); Mean Corpuscular HGB Conc 35.6 % (30-36); Mean Corpuscular Hemoglobin 34.9 PG (26-34); Monocytes Absolute Auto 500 /uL (0-900); Neutrophils Absolute Auto 3200 /uL (1500-7000); Neutrophils Percent Auto 64.9 % (50-75); Platelet Count 186 X10^3/uL (150-400); Red Blood Cell Count 4.46 X10^6/uL (4.0-5.2); Red Cell Distribution Width 13.1 % (11.6-14.8); White Blood Cell Count 4.9 X10^3/uL (4.5-11.0)
[2020-04-16 12:34] LABS: Alanine Aminotransferase 25 IU/L (<35); Albumin 4.5 g/dL (3.5-5.0); Albumin Globulin Ratio 1.7 (1.0-2.8); Alkaline Phosphatase 69 U/L (38-126); Aspartate Aminotransferase 38 IU/L (14-36); BUN Creatinine Ratio 24.5 (6-22); Blood Urea Nitrogen 13 mg/dL (7-17); Carbon Dioxide 31 mmol/L (22-32); Chloride 97 mmol/L (98-107); Estimated Glomerular Filt Rate > 60.0 mL/min (>60); Globulin 2.7 g/dL (1.7-4.1); Glucose 100 mg/dL (80-110); HEMOLYSIS < 15 (0-50); Potassium 3.7 mmol/L (3.4-5.1); Sodium 134 mmol/L (137-145); Total Protein 7.2 g/dL (6.3-8.2)
== END ==
PROVIDERS: PCP Physician Assistant; Referring Provider Internal Medicine Hematology & Oncology; Visit Provider Internal Medicine Hematology & Oncology
DX: C50.911 Malignant neoplasm of unspecified site of right female breast (principal); R91.8 Other nonspecific abnormal finding of lung field; K44.9 Diaphragmatic hernia without obstruction or gangrene
CPT/HCPCS: 36415; 71260; 80053; 85025; Q9967

== ENCOUNTER → 2020-04-29 12:58 | Outpatient (CLI) | payer MEDICARE, OTHER, SELFPAY ==
--- NOTE | 2020-04-29 | DI.CT.S_ITS ---
PROCEDURE: CT ABDOMEN PELVIS W CON INDICATIONS: Incisional hernia without obstruction or gangrene TECHNIQUE: After the administration of oral and intravenous contrast, 5 mm thick sections acquired from the diaphragms to the symphysis. 5 mm thick coronal and sagittal reformats were performed. For radiation dose reduction, the following was used: automated exposure control, adjustment of mA and/or kV according to patient size. COMPARISON: None. FINDINGS: Image quality: Excellent. ABDOMEN: Lung bases: Lung bases are clear except for a small degree of scarring as lung base. Heart size is normal. Solid organs: Liver is normal in size and enhancement. Gallbladder appears normal. Biliary system is non-dilated. Pancreas enhances normally. Spleen is normal in size and enhancement. No adrenal nodules. Kidneys are normal in size and enhancement, without hydronephrosis. Peritoneum and bowel: Stomach, small bowel, and colon loops are normal in caliber and wall thickness. No free fluid or air. Nodes and vessels: No retroperitoneal or mesenteric adenopathy. Aorta and inferior vena cava are normal in caliber. Miscellaneous: There is a periumbilical ventral hernia through a 5.8 cm midline anterior defect through which colon loops extend, superiorly and then slightly more inferiorly an additional separate peritoneal defect centered just to the left of midline containing small bowel loops extending into the subcutaneous fat. These 2 separate hernias are immediately adjacent.. PELVIS: Genitourinary: Bladder wall thickness is normal. Miscellaneous: No inguinal hernias or adenopathy. A ventral hernia is noted extending into the pelvic portion of the subcutaneous fat in the more superior described colonic hernia extends cephalad in the subcutaneous fat to the right of midline. Bones: No suspicious bony lesions. No vertebral body compression fractures. IMPRESSION: No intestinal obstruction or perforation is found. There are 2 separate but immediately adjacent ventral hernias in the periumbilical and infraumbilical area, the more superior of which contains colon and the more inferior of which contains small bowel. These are located respectively to the right and just to the left of midline above and below. No evidence of bowel or omental incarceration or strangulation. Dictated by: Darryl Bhakta M.D. on 04/29/2020 at 14:11 Approved by: Darryl Bhakta M.D. on 04/29/2020 at 14:15
== END ==
PROVIDERS: PCP Physician Assistant; Referring Provider Physician Assistant; Visit Provider Surgery
DX: K43.2 Incisional hernia without obstruction or gangrene (principal)
CPT/HCPCS: 74177; Q9967

== ENCOUNTER → 2021-05-10 12:09 | Outpatient (CLI) | payer MEDICARE, OTHER, SELFPAY ==
--- NOTE | 2021-05-10 12:51 | DI.CT.S_ITS ---
PROCEDURE: CT CHEST WO CON INDICATIONS: right pulmonary lesion TECHNIQUE: Noncontrast 5 mm thick sections acquired from the pulmonary apices to the posterior costophrenic angles. 1 mm lung window, 5 mm thick coronal and sagittal and 7 mm axial MIP reformats were then acquired. For radiation dose reduction, the following was used: automated exposure control, adjustment of mA and/or kV according to patient size. COMPARISON: [facility], [place], [place] FUSION SKULL 2 THIGH, 04/02/2019, 15:52. [facility], CT, CT CHEST ABD PEL W CON, 03/10/2019, 14:15. [facility], CT, CT CHEST W CON, 01/03/2019, 11:43. [facility], CT, CT CHEST W CON, 11/22/2018, 11:05. [facility], CT, CT CHEST WO CON, 12/29/2019, 11:13. FINDINGS: Image quality: Excellent. Lungs and pleura: Small lung nodules are stable. [employer] nodules are listed as the following: Nodule 1: 5 mm; right middle lobe; series 3, image 198; unchanged. Nodule 2: 5 mm; lingula; series 3, image 192. Nodules 3: 2 mm; left lower lobe; series 3, image 220; unchanged. Subpleural infiltrate in the right middle lobe anteriorly is resolved. A scar with surgical suture in the right middle lobe appears unchanged. No pleural effusions or pneumothorax. Central and peripheral airways are patent and normal in caliber. Mediastinum: Heart size is normal. No pericardial effusion. Mild coronary artery calcification. No mediastinal adenopathy by size criteria. Thoracic aorta and central pulmonary arteries are normal in size. Esophagus is normal in caliber. Small hiatal hernia. Bones and chest wall: No axillary or supraclavicular adenopathy by size criteria. There are multiple surgical clips in the right axilla. There is skin thickening involving the right breast, unchanged. No suspicious bony lesions. No vertebral body compression fractures. Scoliosis and mild degenerative changes in thoracic and upper lumbar spine. Thyroid gland is small. Abdomen: Visualized upper abdominal solid organs and bowel loops appear normal in the absence of contrast. Small hiatal hernia. IMPRESSION: 1. Stable small lung nodules bilaterally. 2. Skin thickening of the right breast is unchanged. Dictated by: Lizz Robledo M.D. on 05/10/2021 at 15:50 Approved by: Lizz Robledo M.D. on 05/10/2021 at 16:02
== END ==
PROVIDERS: PCP Physician Assistant; Referring Provider Internal Medicine Hematology & Oncology; Visit Provider Internal Medicine Hematology & Oncology
DX: J98.4 Other disorders of lung (principal); R91.8 Other nonspecific abnormal finding of lung field
CPT/HCPCS: 71250

== ENCOUNTER → 2021-07-11 11:42 | Outpatient (CLI) | payer MEDICARE, OTHER, SELFPAY ==
--- NOTE | 2021-07-11 11:43 | DI.MG.S_ITS ---
BILATERAL DIGITAL SCREENING MAMMOGRAM 3D/2D WITH CAD POST LUMPECTOMY: 07/11/2021 CLINICAL: Routine screening. Routine screening. Personal history of right breast cancer. Comparison is made to exams dated: 07/08/2020 mammogram - [facility], 09/27/2018 ultrasound [facility], 09/17/2018 breast MRI - [facility], and 08/20/2018 mammogram - [facility]. There are scattered fibroglandular elements in both breasts. Current study was also evaluated with a Computer Aided Detection (CAD) system. There are benign vascular calcifications in both breasts. There also are benign post operative findings in the right breast. No significant masses, calcifications, or other findings are seen in either breast. There has been no significant interval change. IMPRESSION: BENIGN There is no mammographic evidence of malignancy. A 1 year screening mammogram is recommended. This exam was interpreted at Station ID: [id number]. NOTE: For mammograms, a report in lay terms will be sent to the patient. Approximately 15% of breast malignancies will not be visualized mammographically. In the management of a palpable breast mass, a negative mammogram must not discourage biopsy of a clinically suspicious lesion. Electronically Signed By: Abdi chavez/mike:07/11/2021 12:48:22 copy to: INESSA GAYLE letter sent: Normal Exam ACR BI-RADS Category 2: Benign Finding(s) [id number]
== END ==
PROVIDERS: PCP Physician Assistant; Referring Provider Internal Medicine Hematology & Oncology; Visit Provider Internal Medicine Hematology & Oncology
DX: Z12.31 Encounter for screening mammogram for malignant neoplasm of breast (principal); Z85.3 Personal history of malignant neoplasm of breast
CPT/HCPCS: 77063; 77067

== ENCOUNTER → 2022-07-13 14:28 | Outpatient (CLI) | payer MEDICARE, OTHER, SELFPAY ==
--- NOTE | 2022-07-13 | DI.MG.S_ITS ---
BILATERAL DIGITAL SCREENING MAMMOGRAM 3D/2D WITH CAD: 07/13/2022 CLINICAL: Routine screening. Personal history of right breast cancer. Comparison is made to exams dated: 07/11/2021 mammogram - [facility], 07/08/2020 mammogram - [facility], 09/27/2018 ultrasound - [facility], 09/17/2018 breast MRI - [facility], and 08/20/2018 mammogram - [facility]. There are scattered areas of fibroglandular density in both breasts (category b / 25%-50% glandular tissue). Current study was also evaluated with a Computer Aided Detection (CAD) system. There are benign vascular calcifications in both breasts. There also are benign post operative findings in the right breast. No significant masses, calcifications, or other findings are seen in either breast. There has been no significant interval change. IMPRESSION: BENIGN There is no mammographic evidence of malignancy. A 1 year screening mammogram is recommended. This exam was interpreted at Station ID: [id number]. NOTE: For mammograms, a report in lay terms will be sent to the patient. Approximately 15% of breast malignancies will not be visualized mammographically. In the management of a palpable breast mass, a negative mammogram must not discourage biopsy of a clinically suspicious lesion. Electronically Signed By: Megan saul/mike:07/13/2022 15:06:58 copy to: INESSA GAYLE letter sent: Normal Exam ACR BI-RADS Category 2: Benign Finding(s) [id number]
--- NOTE | 2022-07-13 14:29 | DI.CT.S_ITS ---
PROCEDURE: CT CHEST WO CON INDICATIONS: BREAST CANCER TECHNIQUE: Noncontrast 5 mm thick sections acquired from the pulmonary apices to the posterior costophrenic angles. 1 mm lung window, 5 mm thick coronal and sagittal and 7 mm axial MIP reformats were then acquired. For radiation dose reduction, the following was used: automated exposure control, adjustment of mA and/or kV according to patient size. COMPARISON: [facility], CT, CT CHEST W CON, 04/16/2020, 13:05. [facility], CT, CT CHEST WO CON, 05/10/2021, 12:42. FINDINGS: Image quality: Excellent. Lungs and pleura: No acute airspace opacities. No new pulmonary nodules. The pulmonary nodules at the bilateral lung bases are unchanged from April 16, 2020. No pleural effusion or pneumothorax. Surgical suture is visualized at the anterior aspect of the right lung base. Mediastinum: Heart size is normal. No pericardial effusion. No mediastinal adenopathy by size criteria. Thoracic aorta and central pulmonary arteries are normal in size. Scattered atheromatous calcifications are present within the aortic arch. Esophagus is normal in caliber. No hiatal hernia. Bones and chest wall: No suspicious bony lesions. No vertebral body compression fractures. No axillary or supraclavicular adenopathy by size criteria. Patient is status post right axillary carol dissection. Thyroid gland is unremarkable . Abdomen: Visualized upper abdominal solid organs and bowel loops appear normal in the absence of contrast. IMPRESSION: 1. Negative CT of the chest. No findings to suggest metastasis. Dictated by: Megan Tapia M.D. on 07/13/2022 at 16:41 Approved by: Megan Tapia M.D. on 07/13/2022 at 16:46
== END ==
PROVIDERS: PCP Physician Assistant; Referring Provider Internal Medicine Hematology & Oncology; Visit Provider Internal Medicine Hematology & Oncology
DX: Z12.31 Encounter for screening mammogram for malignant neoplasm of breast (principal); C50.911 Malignant neoplasm of unspecified site of right female breast
CPT/HCPCS: 71250; 77063; 77067

== ENCOUNTER → 2023-07-17 12:04 | Outpatient (CLI) | payer MEDICARE, OTHER, SELFPAY ==
--- NOTE | 2023-07-17 12:07 | DI.CT.S_ITS ---
PROCEDURE: CT CHEST WO CON INDICATIONS: breast cancer, lung nodules TECHNIQUE: Noncontrast 5 mm thick sections acquired from the pulmonary apices to the posterior costophrenic angles. 1 mm lung window, 5 mm thick coronal and sagittal and 7 mm axial MIP reformats were then acquired. For radiation dose reduction, the following was used: automated exposure control, adjustment of mA and/or kV according to patient size. COMPARISON: [facility], CT, CT CHEST WO CON, 05/10/2021, 12:42. CT, CT ABDOMEN PELVIS W CON, 04/29/2020, 13:41. CT, CT CHEST W CON, 04/16/2020, 13:05. [facility], CT, CT CHEST WO CON, 12/29/2019, 11:13. CT, CT RANDALL, 07/03/2019, 12:57. NM, NM PET CT FUSION SKULL 2 THIGH, 04/02/2019, 15:52. [facility], CT, CT CHEST WO CON, 07/13/2022, 14:44. FINDINGS: Image quality: Excellent. Lungs and pleura: Stable postsurgical changes in the right cardiophrenic angle. The irregular density adjacent to the surgical suture appears unchanged, likely postsurgical change. Small lung nodules are present bilaterally, unchanged in size. Reference nodules are listed in the following: Nodule 1: 4 mm; series 3, image 185; right middle lobe; stable. Nodule 2: 5 mm; series 3 image 201; lingula; stable. Nodule 3: 1.2 cm; series 3, image 211; left cardiophrenic angle; stable. No acute air space opacities. No pleural effusions or pneumothorax. Central and peripheral airways are patent and normal in caliber. Mediastinum: Heart size is normal. No pericardial effusion. No mediastinal adenopathy by size criteria. Thoracic aorta and central pulmonary arteries are normal in size. Esophagus is normal in caliber. No hiatal hernia. Bones and chest wall: There are postsurgical changes in right breast and axilla. No suspicious bony lesions. No vertebral body compression fractures. No axillary or supraclavicular adenopathy by size criteria. Thyroid gland is normal. Abdomen: Visualized upper abdominal solid organs and bowel loops appear normal in the absence of contrast. IMPRESSION: 1. Postsurgical changes in the right cardiophrenic angle. 2. Stable pulmonary nodules bilaterally. 3. No lymphadenopathy. Dictated by: Lizz Robledo M.D. on 07/18/2023 at 9:58 Approved by: Lizz Robledo M.D. on 07/18/2023 at 10:12
--- NOTE | 2023-07-17 12:07 | DI.MG.S_ITS ---
BILATERAL DIGITAL SCREENING MAMMOGRAM 3D/2D WITH CAD: 07/17/2023 CLINICAL: Routine screening. Personal history of right breast cancer. Comparison is made to exams dated: 07/13/2022 mammogram, 07/11/2021 mammogram - [facility], and 07/08/2020 mammogram - [facility]. There are scattered areas of fibroglandular density in both breasts (category b / 25%-50% glandular tissue). Current study was also evaluated with a Computer Aided Detection (CAD) system. There are benign vascular calcifications in both breasts. There also are benign post operative findings in the right breast. No significant masses, calcifications, or other findings are seen in either breast. There has been no significant interval change. IMPRESSION: BENIGN There is no mammographic evidence of malignancy. A 1 year screening mammogram is recommended. This exam was interpreted at Station ID: [id number]. NOTE: For mammograms, a report in lay terms will be sent to the patient. Approximately 15% of breast malignancies will not be visualized mammographically. In the management of a palpable breast mass, a negative mammogram must not discourage biopsy of a clinically suspicious lesion. Electronically Signed By: Abdi chavez/mike:07/22/2023 14:33:26 copy to: INESSA GAYLE copy to: Pattie Contreras letter sent: Normal Exam ACR BI-RADS Category 2: Benign Finding(s) 3342F
== END ==
PROVIDERS: PCP Physician Assistant; Referring Provider Internal Medicine Hematology & Oncology; Visit Provider Internal Medicine Hematology & Oncology
DX: Z12.31 Encounter for screening mammogram for malignant neoplasm of breast (principal); C50.911 Malignant neoplasm of unspecified site of right female breast; J98.4 Other disorders of lung; R91.8 Other nonspecific abnormal finding of lung field
CPT/HCPCS: 71250; 77063; 77067

== ENCOUNTER → 2024-03-04 12:54 | Outpatient (CLI) | payer MEDICARE, OTHER, SELFPAY ==
--- NOTE | 2024-03-04 12:58 | DI.CT.S_ITS ---
PROCEDURE: CT CHEST WO CON INDICATIONS: Malignant neoplasm of right breast ER positve TECHNIQUE: Noncontrast 5 mm thick sections acquired from the pulmonary apices to the posterior costophrenic angles. 1 mm lung window, 5 mm thick coronal and sagittal and 7 mm axial MIP reformats were then acquired. For radiation dose reduction, the following was used: automated exposure control, adjustment of mA and/or kV according to patient size. COMPARISON: [facility], CT, CT CHEST WO CON, 07/17/2023, 12:46. FINDINGS: Image quality: Diagnostic. Lower Neck: No enlarged lymph nodes. Thyroid: No thyroid nodules which require sonographic follow up, per consensus guidelines. Axillae: No enlarged lymph nodes. Right axillary lymph node dissection Chest Wall: Surgical clips of the right breast. Bones: Unremarkable. Lungs and Pleura: No pneumothorax or pleural effusions. Prior right middle lobe wedge resection. No evidence of local recurrence along the surgical margin. There is bronchiectasis and mucous impaction within the right middle lobe and lingula. Stable solid pulmonary micro nodules. Heart: Heart size is normal. No pericardial effusion. Thoracic Vessels: The aorta and pulmonary arteries demonstrate normal size. Mediastinum and Ellie: No enlarged lymph nodes. Esophagus: No wall thickening. Small hiatal hernia. Upper Abdomen: Gastric cardia diverticulum. IMPRESSION: Prior right middle wedge resection, without evidence of local recurrence. 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 Dictated by: Mikey Duran M.D. on 03/04/2024 at 17:07 Approved by: Mikey Duran M.D. on 03/04/2024 at 17:10
== END ==
PROVIDERS: PCP Physician Assistant; Referring Provider Internal Medicine Hematology & Oncology; Visit Provider Internal Medicine Hematology & Oncology
DX: C50.911 Malignant neoplasm of unspecified site of right female breast (principal); J47.9 Bronchiectasis, uncomplicated; K44.9 Diaphragmatic hernia without obstruction or gangrene; K31.4 Gastric diverticulum; Z17.0 Estrogen receptor positive status [ER+]
CPT/HCPCS: 71250

== ENCOUNTER → 2024-04-15 13:44 | Outpatient (CLI) | payer MEDICARE, OTHER, SELFPAY ==
[2024-04-15 15:03] LABS: Appearance Urine UA SL CLOUDY; Bilirubin Urine UA NEGATIVE (NEGATIVE); Color Urine UA YELLOW; Glucose Urine UA NEGATIVE (Negative); Ketones Urine UA NEGATIVE (NEGATIVE); Leukocyte Esterase Urine UA 2+ (NEGATIVE); Nitrite Urine UA NEGATIVE (Negative); Occult Blood Urine UA NEGATIVE (Negative); Protein Urine UA NEGATIVE (Negative); Specific Gravity Urine UA <=1.005 (1.000-1.035); Urobilinogen Urine UA 0.2 E.U./dL (0.2)
[2024-04-15 15:16] LABS: Bacteria Urine Few (2-10); RBC Urine None Seen (0-5/HPF); Urine Volume 10mL (spun); WBC Urine 5-10/HPF (0-5/HPF)
[2024-04-15 15:17] LABS: Culture Indicated Urine Specimen Cultured; Squamous Epithelial Cell Urine 1-5 /HPF (0-5/HPF); Transitional Epi Cells Urine 0-1/HPF (0-5/HPF)
== END ==
PROVIDERS: PCP Physician Assistant; Referring Provider Orthopaedic Surgery; Visit Provider Orthopaedic Surgery
DX: Z01.818 Encounter for other preprocedural examination (principal); Z01.812 Encounter for preprocedural laboratory examination; R73.9 Hyperglycemia, unspecified; N39.0 Urinary tract infection, site not specified
CPT/HCPCS: 81001; 87086; 93005

== ENCOUNTER → 2024-04-21 10:37 | Outpatient (CLI) | payer MEDICARE, OTHER, SELFPAY ==
[2024-04-21 12:13] LABS: Hemoglobin A1C% w Est Avg Glu 4.8 % (4.0-6.0)
== END ==
PROVIDERS: PCP Physician Assistant; Referring Provider Orthopaedic Surgery; Visit Provider Orthopaedic Surgery
DX: R73.9 Hyperglycemia, unspecified (principal)
CPT/HCPCS: 36415; 83036

== ENCOUNTER 2024-04-29 12:02 | Day surgery (SDC) | payer MEDICARE, OTHER, SELFPAY ==
[2024-04-23 09:35] VITALS: BMI 23.4
[2024-04-29] VITALS (10 sets, daily range): BP systolic 122–159; BP diastolic 47–93; PULSE 69–81; RESP 12–22; TEMP 36.2–37.2; O2SAT 95–99; BMI 23.4
--- NOTE | 2024-04-29 | DI.RAD.S_ITS ---
PROCEDURE: XR HIP W PEL IF DONE RT 4V INDICATIONS: rt hip TECHNIQUE: AP pelvis and lateral view of the hip acquired. COMPARISON: [facility], CR, XR HIP W PEL IF DONE RT 2V, 04/29/2024, 16:12. [facility] [place], CR, XR PELVIS WITH LATERAL HIP RIGHT, 04/21/2024, 9:35. FINDINGS: 4 intraoperative fluoroscopy images demonstrate right hip arthroplasty with expected postsurgical change. IMPRESSION: Expected post-operative appearance of a hip arthroplasty. Dictated by: Lizz Robledo M.D. on 04/29/2024 at 16:40 Approved by: Lizz Robledo M.D. on 04/29/2024 at 16:41
--- NOTE | 2024-04-29 06:00 | DI.RAD.S_ITS ---
PROCEDURE: XR HIP W PEL IF DONE RT 2V INDICATIONS: EMERY TECHNIQUE: AP pelvis and lateral view of the hip acquired. COMPARISON: [facility], CR, XR HIP W PEL IF DONE RT 4V, 04/29/2024, 15:07. FINDINGS: Bones: Patient is status post total right hip arthroplasty, with hardware components in expected positions. The hip joint appears congruent. The visualized bony structures appear intact. Soft tissues: Overlying postoperative changes are noted. No suspicious soft tissue densities. IMPRESSION: Expected immediate postoperative appearance, status post total right hip arthroplasty. Dictated by: Avery Meade M.D. on 04/29/2024 at 16:36 Approved by: Avery Meade M.D. on 04/29/2024 at 16:36
[2024-04-29] MEDS: LACTATED RINGERS 1,000 ML 42 ML IV ×2 (12:05→14:39)
[2024-04-29] MEDS: CELECOXIB 200 MG CAPSULE PO (12:05)
[2024-04-29] MEDS: ACETAMINOPHEN 325 MG TABLET 975 MG PO (12:05)
[2024-04-29] MEDS: VANCOMYCIN 1,000 MG/200 ML PIGGYBACK 200 MG IV (12:55)
--- NOTE | 2024-04-29 13:45 | PM.PREOP ---
Pre-operative Note Interval Note History & Physical reviewed/Exam performed by Physician: Yes Changes to H&P: Yes
--- NOTE | 2024-04-29 13:46 | P.OP_ITS ---
Operative Date/Time/Diagnoses Date of procedure: 04/29/24 Time of procedure: 13:50 Pre-op diagnosis: Right hip OA with some AVN Post-op diagnosis: same Procedure & Clinicians Procedure: Right total hip arthroplasty anterior approach Same procedure as scheduled: Yes Indications: The patient has had progressively worsening right hip pain with radiographic changes consistent with arthritis. Non-operative management has failed and the patient has requested total hip replacement. The risks, benefits and alternatives to surgery were discussed with the patient prior to proceeding. Risks discussed included, but were not limited to, failure to relieve pain, leg length discrepancy, dislocation, stiffness, infection, nerve damage, deep venous thrombosis, pulmonary embolism, stroke, coma, heart attack, permanent paralysis and , as well as the potential need for eventual revision of the prosthetic. 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 Patient was carefully positioned in the supine position. Time-out was performed and antibiotics were given. Anesthesia was induced. She was positioned in the on the table in order to allow hyperextension of the hip. The right lower extremity was prepped and draped in a standard sterile fashion. An anterior right hip incision was made 1 fingerbrea dth lateral to the anterior superior iliac spine and extended distally towards the greater trochanter. Dissection was carried out through skin and subcutaneous tissues. Superficial hemostasis was achieved. The fascia over the tensor fascia tenzin was defined and incised with a knife. Two Allis clamps were used to grasp the fascia. Tensor fascia tenzin was retracted laterally. A gelpi retractor was placed. Dissection was carried out down along the neck. The circumflex vessels were carefully identified and cauterized with the Aqua Mantis. A PA was used during the procedure and was essential for intraoperative retraction and safe implantation of the components. There was good visualization of the femoral neck. A Cobra was placed superior to the neck and the gluteus fibers were carefully stripped from that superior aspect of the capsule. A 2nd retractor was placed along the inferior aspect of the neck. The rectus insertion along the capsule was partially released. A 3rd retractor that was then gently placed over the rim of the acetabulum under the rectus. Capsule was carefully incised and released from the intertrochanteric line circumferentially superior to the mid sagittal line and inferiorly to the mid sagittal line until the lesser trochanter was palpable. A tag stitch was placed both in the superior and inferior limb of the capsular insertion. Along the acetabulum capsule was also released up to the mid sagittal 12:00 position. A portion of the labrum was resected. A saw was used to perform an osteotomy at the level of the intertrochanteric line and the junction of the superior femoral neck leaving approximately 1 finger breath of residual inferior neck above the lesser trochanter. A 2nd cut was made along the femoral neck at the base of the head and a napkin ring of neck was removed. Corkscrew was placed in the femoral head and the head was removed without difficulty. Retractors were then repositioned around the acetabulum. Residual labrum was resected and additional osteophytes were removed. A reamer that was 4 mm below the templated size was placed by hand in the acetabulum and it was reamed to centralize the acetabulum. It was then reamed up to 2 under the templated size and fluoroscopy was brought in to confirm the position of the reaming and depth of reaming. I reamed 1 under the anticipated size. A trial cup was placed and noted that it was appropriately sized and fluoroscopy confirmed position and depth. The component was open and inserted without difficulty fluoroscopic imaging was used to confirm that the cup had been adequately seated and was well positioned. It was further stabilized with a single screw. Neutral poly liner was placed. The cup was tested and noted to be stable. Attention was then directed to the femur. The femur was gently hyperextended additional capsular release was performed as needed in order to allow adequate visualization of the proximal femur with elevation of the femur. Patient was placed in a hyperextended slightly adducted position with maximum external rotation. Box osteotome was used to check for any residual neck as well as sclerotic bone along the trochanter. [place] pepper was placed in the femur. Additional broaching was performed. Canal finder was used to determine the alignment of the canal and position. Size 1 broach was placed. The canal was then appropriately broached up to the templated size as long as there was adequate stability of the broach and serial advancement of the broach without excessive impingement. Specific attention was directed at avoiding varus attempting to direct the distal aspect of the broach more anteriorly and avoiding excessive anteversion. Trial reduction showed acceptable range of motion, good stability, no posterior impingement, evangelical of leg length and appropriate lateral shuck. I also hyperflexed the hip and checked that there was no impingement anteriorly and there was good stability with flexion, adduction and internal rotation. Marcaine and Exparel were injected. The stem was placed without difficulty. Repeat trial reduction and x-ray showed acceptable overall position, length, and no evidence of the femoral fracture. Final head was placed. Wound was meticulously irrigated with normal saline. The hip was reduced and additional Exparel and Marcaine were injected. The capsule was closed with interrupted nonabsorbable sutures. The fascia of the tensor was closed with interrupted and running Vicryl. No drain was placed. Any tensor fascia tenzin muscle that appeared to be contused or injured which was a minimal amount was carefully resected. Capsule around the tensor was injected with Exparel and Marcaine. The skin was closed with barbed stitches for the subcutaneous tissue and skin. We also used surgical glue. The wound was dressed sterilely. Brief Betadine soak was also used and was meticulously irrigated with normal saline. Patient was transferred to recovery room in satisfactory condition. Complications: none Post-operative Condition: stable Disposition: Acute Care Plan for aftercare: The patient will be maintained on a standard total hip replacement protocol with weight bearing as tolerated and anterior hip precautions. The patient will receive Aspirin and sequential compression devices for DVT prophylaxis. The patient will be discharged home when safe for the home environment.
[2024-04-29] MEDS: CEFAZOLIN 2 GM/100 ML PREMIX 100 ML IV ×2 (14:15→21:28)
[2024-04-29] MEDS: TRANEXAMIC ACID 1,000 MG VIAL 1000 MG INJ ×2 (14:20→15:59)
--- NOTE | 2024-04-29 14:31 | SUR.OPER ---
Patient supine on padded Ayr table, one arm on padded arm board at <90, other arm padded and secured with tape across patient's chest, both legs secured in padded traction boots and positioned per surgeon, padded post at patient's groin, pressure points checked and padded.
[2024-04-29] MEDS: BUPIVACAINE 0.25% (PF) 60 ML, EPINEPHrine 0.15 MG INJ (14:35)
[2024-04-29] MEDS: BUPIVACAINE LIPOSOME 266 MG/20 ML VIAL INJ (14:36)
[2024-04-29] MEDS: LACTATED RINGERS 1,000 ML 100 ML IV (16:55)
--- NOTE | 2024-04-29 19:26 | PC.NURSE ---
Dayshift: Pt OOB 1PA/FWW, pt attempted to void (last void ~ 11am) at 1830, was unable. Bladder scan for 29 ccs, IV fluids continued and encouraged PO fluid intake. Pt stated understanding. Will continue to monitor.
[2024-04-29] MEDS: DORZOLAMIDE/TIMOLOL OPHTH 10 ML 1 DROPS EYE-BOTH (21:28)
[2024-04-29] MEDS: DOCUSATE 100 MG CAPSULE PO (21:28)
[2024-04-29] MEDS: ASPIRIN EC 81 MG TABLET PO (21:28)
[2024-04-29] MEDS: ACETAMINOPHEN 325 MG TABLET 650 MG PO (22:05)
[2024-04-30] MEDS: ACETAMINOPHEN 325 MG TABLET 650 MG PO (04:16)
[2024-04-30] MEDS: CEFAZOLIN 2 GM/100 ML PREMIX 100 ML IV (05:04)
[2024-04-30] MEDS: LEVOTHYROXINE 75 MCG TABLET PO (05:04)
[2024-04-30] MEDS: LEVOTHYROXINE 100 MCG TABLET PO (05:04)
[2024-04-30 05:08] LABS: Hematocrit 35.1 % (36-46); Hemoglobin 12.3 g/dL (12.0-16.0)
--- NOTE | 2024-04-30 07:09 | PM.PNPO.1 ---
Subjective Subjective Date Patient Seen: 04/30/24 Time Patient Seen: 07:09 Interval history: Pt sitting up in bed. Very hesitant to go home today d/t pain. Has not worked w/ PT yet, has been OOB only to bedside commode. Exam Vital Signs (past 8 hours): Oxygen Delivery Method Room Air Oxygen Flow Rate 0 Narrative Exam Narrative: 4/5 strength in hip flexors, 5/5 quadriceps, hamstrings, DF, PF, EHL on right. Sensation to light touch intact throughout RLE, calf soft and compressible. Aquacel dressing CDI. Objective Labs 04/30/24 04:22 Labs: Laboratory Results - last 24 hr 04/30/24 04:22 Hgb 12.3 Hct 35.1 L PFSH Medical History Anesthesia complication Anxiety Depression Easy bruising BCC (basal cell carcinoma) Osteoarthritis Hx of small bowel obstruction (06/2019) Breast cancer, right breast (08/2018) Pain History of headache Surgical menopause Former smoker Hyperlipidemia Hypertension Hypothyroidism Surgical History (Updated 04/30/24 @ 07:11 by Sandra Florez PA-C) Hx of appendectomy History of ankle surgery (1977) Hx of lymph node excision (04/2019) History of lung surgery (06/2019) Status post right foot surgery (11/2022) Hx of hernia repair (~2017) Hx of hernia repair (~2016) History of removal of Port-a-Cath (~2018) History of surgery (09/11/18) History of right cataract surgery (03/23/16) History of left cataract surgery (11/25/15) Status post hernia repair (08/2013) Status post hernia repair (03/2014) History of hysterectomy (~1992) Status post hernia repair (01/2015) Family History Father Hypertension Mother Stroke Liver cancer Gallstones Heart disease Social History household members: family Smoking Status: Former smoker second hand exposure: No alcohol intake: current substance use type: does not use Assessment & Plan Post-op Assessment and plan (1) S/P total hip arthroplasty: Assessment and Plan narrative: Possible d/c home later today if she does well w/ PT and pain well-controlled w/ oral medication. Postoperative Procedures: Procedures Operation Date: 04/29/24 13:45 Actual Procedure Side Surgeon p Total Hip Arthroplasty/Anterior Approach Right Mindy Boles MD Postoperative day: 1
[2024-04-30 08:00] VITALS: BP 120/62; PULSE 69; RESP 16; TEMP 36.5; O2SAT 95
--- NOTE | 2024-04-30 08:50 | PT.IIE ---
Current Diagnoses Unilateral primary osteoarthritis, right hip (04/29/24) Presence of unspecified artificial hip joint (04/29/24) Surgery Performed Operation Date: 04/29/24 13:45 Actual Procedures p Total Hip Arthroplasty/Anterior Approach(Right) - Mindy Boles MD Surgical History (Last Reviewed 04/29/24 @ 11:42 by Анна Flores RN) History of ankle surgery (1977) History of hysterectomy (~1992) History of left cataract surgery (11/25/15) History of lung surgery (06/2019) History of removal of Port-a-Cath (~2018) History of right cataract surgery (03/23/16) History of surgery (09/11/18) Hx of appendectomy Hx of hernia repair (~2016) Hx of hernia repair (~2017) Hx of lymph node excision (04/2019) Status post hernia repair (01/2015) Status post hernia repair (03/2014) Status post hernia repair (08/2013) Status post right foot surgery (11/2022) Medical History (Last Reviewed 04/29/24 @ 11:42 by Анна Flores RN) Anesthesia complication Anxiety BCC (basal cell carcinoma) Breast cancer, right breast (08/2018) Depression Easy bruising Former smoker History of headache Hx of small bowel obstruction (06/2019) Hyperlipidemia Hypertension Hypothyroidism Osteoarthritis Pain Surgical menopause Physical Therapy Inpatient Evaluation/Re-Eval M1 PT/OT-IP Prior Functional Status Start: 04/30/24 11:53 Freq: NEEDED Status: Active Protocol: Document 04/30/24 08:50 AB (Rec: 04/30/24 12:12 AB [id number]) Medical Review Prior Functional Status Medical History Reviewed Yes Communication able to make needs known Mobility and Gait pt stated that she was modified independent with all mobilities and ambulation using a SPC Social History Household Members family Living Arrangements House Number of Floors (Floors) Two Floors Number of Stairs To Enter/Railing? pt will be staying on main level of the house 2 steps R rail ascending to enter the house Home Environment High Toilet,Walk in Shower Home Equipment Front Wheel Walker,Straight Cane,Shower Seat with Backrest ,Hand Held Shower,Grab Bars In Shower Additional Social History Comment pt lives with her son and [id number]. DIL will be assisting pt at home. M2 PT-IP Current Condition Start: 04/30/24 11:53 Freq: NEEDED Status: Active Protocol: Document 04/30/24 08:50 AB (Rec: 04/30/24 12:12 AB [id number]) Physical Therapy Current Condition Current Condition Evaluation Date 04/30/24 Treatment Diagnosis s/p R EMERY anterior; difficulty in walking Onset Date 04/29/24 M3 PT-IP Subjective Start: 04/30/24 11:53 Freq: NEEDED Status: Active Protocol: Document 04/30/24 08:50 AB (Rec: 04/30/24 12:12 AB [id number]) Subjective Physical Therapy Visit Type Type Initial Evaluation Visit Start Time 08:50 Visit Stop Time 09:45 Number of KENNEL STAFF MEMBER Visits 0 Physical Therapy Visit Comments Patient Comments agreeable to do PT Therapy Pain Assessment Pain When Pain Assessed At Rest Pain Present Pain Present Pain Reported Location Right Hip Intensity 2 Scale Used Numeric (0 - 10) Pain Behaviors Guarding,Holding Area Pain Management Techniques Apply Cold,Distraction, Modification of Treatment,Re- positioning,Timing of Activity with Medications M4 PT-IP Mobility and Gait Start: 04/30/24 11:53 Freq: NEEDED Status: Active Protocol: Document 04/30/24 08:50 AB (Rec: 04/30/24 12:12 AB [id number]) PT-Bed Mobility Assessment Supine to Sit Supine to Sit Maximum Assistance PT-Transfer Assessment Sit to and From Stand Sit to and from Stand Moderate Assistance,1 Person Assistance,Use of Upper Extremities Equipment Transfer Assistive Device Gait Belt,Front Wheeled Walker Orthotic/Prosthetic Devices or Brace: No Transfers Transfer Destination Chair Transfer Technique ambulated Transfer Ability Level of Assist Moderate Assistance,1 Person Assistance,Use of Upper Extremities Comments Mobility Comments pt supine in bed and agreeable to do PT. obtained PLOF and home set up from pt. pt requiring increase time to respond to questions and instructions. post-op folder provided and reviewed contents with pt. educated pt regarding anterior hip precaution for RLE. pt needed cues to recall. Bp in supine: 115/48. pt completed supine to sit max A and max cues. pt was able to sit on EOB SBA. BP in sitting : 125/61. pt completed sit to stand mod A and max cues and ambulated in room using FWW mod A and max cues. pt stated that she needs to sit down. pt sat on window bench. cued for R quads activation. BP checked: 149/62. pt completed sit to stand from the bench mod A and max cues and ambulated towards the chair using FWW min to mod A and max cues. pt sat on the chair. pt agreed to stay on the chair . positioned pt on the chair. call light and table placed within reach. informed pt regarding caregiver training. pt agreed for PT/nursing staff to call her DIL to come in this afternoon for training. Per nurse, DIL will come in at 230pm for training. Gait Assessment Gait Gait Assistance Required: Minimum Assistance,Moderate Assistance Distance (Feet) 8 Able to Maintain Weight Bearing Status Yes During Gait Assistive Devices Assistive Device Gait Belt,Front Wheeled Walker Orthotic/Prosthetic Devices or Brace: No Gait Deviations General Gait Pattern Antalgic,Decreased Feet Clearance Factors Limiting Gait Function Factors Limiting Gait Function Decreased Activity Tolerance, Decreased Strength,Difficulty Following Directions,Limited Range of Motion,Pain,Poor Balance,Poor Safety Awareness PT-Balance Assessment Sitting Balance and Reactions Static Sitting Balance Ability Good Dynamic Sitting Balance Ability Good Standing Balance and Reactions Static Standing Balance Ability Fair Dynamic Standing Balance Ability Poor Device Used FWW M5 PT-IP Objective Assessments Start: 04/30/24 11:53 Freq: NEEDED Status: Active Protocol: Document 04/30/24 08:50 AB (Rec: 04/30/24 12:12 AB [id number]) Orientation Orientation/Cognition Level of Alertness Alert Orientation Name,Place,Situation Language Function Ability No Deficits Noted Safety Awareness Decreased Safety Awareness Memory Description Short Term Impaired Comments with slight confusion Gross Range of Motion Lower Extremity ROM Assessment Within Functional Limits Strength Lower Extremity Strength Assessment Right Impaired Hip 2+/5 Knee 3+/5 Coordination Assessment Gross Coordination Gross Coordination WNL Sensation Assessment Sensation Gross Sensation WNL Muscle Tone Muscle Tone WNL Yes M6 PT-IP Treatment Start: 04/30/24 11:53 Freq: NEEDED Status: Active Protocol: Document 04/30/24 08:50 AB (Rec: 04/30/24 12:12 AB [id number]) Physical Therapy Treatment Exercises Exercises Heel Slides Education Education Provided Precautions,Weight Bearing Status,Post-Op Packet,Safety M7 PT-IP Assessment and Plan Start: 04/30/24 11:53 Freq: NEEDED Status: Active Protocol: Document 04/30/24 08:50 AB (Rec: 04/30/24 12:12 AB [id number]) PT Summary Assessment and Plan Potential Rehabilitation Potential Fair Status of Condition at Evaluation Evolving Summary Impairments Pain,ROM,Strength,Balance, Coordination,Sensation,Tone, Cognition,Bed Mobility, Transfers,Gait,Activity Tolerance Assessment Summary pt is an 78 y/o F s/p R EMERY anterior approach POD 1. pt has R hip anterior precautions and is WBAT. pt requiring cues for carryover of precautions. pt requiring mod A with mobility using FWW and with decrease activity tolerance affecting level of assistance. caregiver training set up for this afternoon at ~ 230 pm. pt also needs to complete stair climbing training prior to d/c since pt has 2 steps to enter the house. will continue to assess . Goals Bed Mobility Goal Standby Assistance Transfer Goal Standby Assistance,Front Wheeled Walker Gait Goal Standby Assistance,Front Wheel Walker Gait Distance 150 Other Goals improve bed mobility, transfers, ambulation using FWW ~ 250 ft mod I up/down 2 steps R rail ascending SBA Days to Meet Goals 5 Frequency of Treatment Frequency Of Treatment Twice a Day Treatment Plan Physical Therapy Treatment Plan Bed Mobility Training,Transfer Training,Gait Training, Therapeutic Exercise,Balance Retraining,Post Op Education, Discharge Planning,Hot or Cold Pack,Neuromuscular Re-ed, Coordination Retraining,Manual Therapy Other Recommendations and Next Treatment caregiver trainin/19 @ 230 Focus pm Precautions Anterior Hip Precautions No Hip Extension,No Hip External Rotation Weight Bearing Status Weight Bearing Status Weight Bear as Tolerated Allowed Weight Bearing Amount (enter % RLE WBAT or #) (%) Recommendations To Nursing Amount of Assist Needed 1 Person Assist Discharge Recommendations PT Discharge Recommendations Home with 04/06 Assist Available,Outpatient PT Transportation Needs at Discharge Private Vehicle
[2024-04-30] MEDS: IBUPROFEN 400 MG TABLET PO ×2 (08:57→13:56)
[2024-04-30] MEDS: TRAMADOL 50 MG TABLET PO ×2 (08:57→15:57)
[2024-04-30] MEDS: VIT C/E/ZN/COPPR/LUTEIN/ZEAXAN CAPSULE 1 CAP PO (09:57)
[2024-04-30] MEDS: DOCUSATE 100 MG CAPSULE PO (09:57)
[2024-04-30] MEDS: CHOLECALCIFEROL (VITAMIN D3) 1,000 UNIT TABLET 2000 UNIT PO (09:57)
[2024-04-30] MEDS: MULTIVITAMIN 1 TABLET 1 TAB PO (09:57)
[2024-04-30] MEDS: TRIAMTERENE/HCTZ 37.5/25 CAPSULE 1 CAP PO (09:57)
[2024-04-30] MEDS: DORZOLAMIDE/TIMOLOL OPHTH 10 ML 1 DROPS EYE-BOTH (09:57)
[2024-04-30] MEDS: ASPIRIN EC 81 MG TABLET PO (09:57)
--- NOTE | 2024-04-30 11:46 | CM.DANOTE ---
DCP Assessment Note Pt is an 78yo F here following planned right total hip surg with Dr. Boles on 04.29.24. Pt is POD1. PCP Pattie Contreras Payer Medicare and commercial insurance [employer] reviewed EMR. Per PT, rec home with assistance. Caregiver training later this afternoon with DIL and then likely dc home later. PAINTER [employer] entered room and introduced self and role. Pt resting in chair. Pt lives in [facility] with son Jim and DIL Lorenza. Lorenza will be primary residential designer for pt post op. Pt has walker, grabbers, shower chair, and lots of equipment at home. Reports she was emotional this morning but is feeling better now. Denies any CM needs P: anticipate dc later this afternoon with DIL to transport. CM team will continue to follow as needed. TIMOTHY Cedeno Discharge Planning/Care Management CM Discharge Assessment Start: 04/30/24 11:44 Freq: Status: Active Protocol: Document 04/30/24 11:44 SL (Rec: 04/30/24 11:46 SL [id number]) Discharge Planning Assessment Assigned Freight Receiver TIMOTHY Bullard DPOA/Assigned Designee Name sabrina rachel Contact Information [phone] Advance Directives? Yes: POLST Advance Directives on File Yes History Provided By Patient Prior Living Arrangements House Household Members family Independent with ADL's Yes Is patient alert and oriented? Yes DME Already Rented / Owned Bath Bench,Elevated Toilet Seat,FWW / Walker,Other Barriers to Discharge No Discharge Plan Home Transportation Arrangement DIL In POV Referrals Initiated None needed Whiteboard Updated in Patient Room with Yes name and ext. # of Freight Receiver Review Status In Process Please Provide Date Initial DC 04/30/24 Assessment Was Performed Next Review Type Continued Stay Review Pre-Anesthesia Assessment Start: 04/23/24 09:35 Freq: Status: Active Protocol: Document 04/23/24 09:35 CAB (Rec: 04/23/24 10:37 CAB [id number]) Pre-Anesthesia Assessment PAC Comment Dr. Cavazos reviewed current EKG with priors, no change. Preferred Name Like Lynnette with a Z Patient Information Reviewed Via Phone Assessment Assessment Completed With Patient Diagnostic Results BMP/CMP,CBC,EKG Comment Labs/EKG @ Primary Care Provider Pattie Contreras Seen Specialist in Last 12 Months Yes Specialist Seen Oncologist,Orthopedist Primary Language Sudanese Supervisor Edging Required No Height 165.1 cm Weight 63.957 kg Body Mass Index (BMI) 23.4 Hearing Ability Normal Visual Assist Magnifying Glass Dentition Type Teeth, Natural Present Barriers to Learning None Hx Anesthesia Reactions No: claustrophobic- needs to hold o2 mask if needed Hx Family Anesthesia Reaction No Hx Malignant Hyperthermia No Hx Blood Transfusions Yes: s/p hernia surgery Hx Blood Transfusion Reaction No Anesthesia Review Requested No Work From Home No alcohol intake current alcohol intake frequency 0-2 drinks per day Smoking Status Former smoker how long ago did patient quit smoking 1966 Substance Use Type does not use Pain Present Pain Reported Musculoskeletal Symptoms Abnormal Gait,Difficulty Walking,Joint Pain History of Falling (Recent or History of Yes ) Patient is completely paralyzed or No completely immobile Prosthesis or Orthotic Device Cane Mental Status Oriented to own ability Is patient on oxygen? No Does patient have [place]ENFIELD/SOB No Hx Sleep Apnea No CPAP/BIPAP use not prescribed Currently Taking a Beta Curt No Can You Climb a Flight of Stairs Without Yes SOB Hx Chest Pain No Hx SOB No Hx Syncope or Dizziness No Anti-Coagulant Therapy No Has a Occup Ther No Cardiac Testing No Hx Pacemaker/ICD No Pacemaker Rep Required? No Cardiac Clearance Received No Diet Type At Home Regular Dysphagia No Gastrointestinal Symptoms None Bladder Pattern Urgency Urinary Catheter Present No Hx Urinary Self Catheterization No Diabetes No HgbA1C 4.8 Date 04/21/24 Patient No Lactating No Presence of External or Internal Medical Yes: Maikel eye IOLs, right toe Devices Received a COVID vaccine? Yes Received all doses? Yes Marital Status /-last year Lives With family Current Living Arrangements House Number of Floors (Floors) Two Floors Support System Child/Children Comment Son/ntfsqsou-or-cah live with patient who will assist w/care at MA Does the Patient Have Assistance After Yes Surgery Patient Discharge Plan Description Return Home Comment Pt advised same day surgery per surgeon Feels Safe in Current Environment Yes Been Physically Hurt or Threatened By a No Person in Current Environment Do you have thoughts of harming yourself None or others? Are you currently considering suicide? No Do you have a plan to hurt yourself or No Plan others? Do You Have Any Spiritual Beliefs That No May Affect Your HC Choices? Do You Have Any Cultural Practices That No May Affect Your HC Choices? Who Can We Speak to About Patient's Care Family, friends Identifying Code for Release of Patient Declines to issue Information Health Care Proxy/Next of Kin Jim (son) Lorenza (daughter in- law) Health Care Proxy Phone Number Jim: [phone], Lorenza: pt to update dos Emergency Contact Name Jim (son) Lorenza (daughter in- law) Emergency Contact Phone Number Jim: [phone], Lorenza: pt to update dos Advance Directives? Yes: POLST Advance Directives on File Yes Power of Hand Sander No PAC Instructions Assistance for 24 hours post- op,Do not shave/clip surgical site,Durable medical equipment ,Medications to take/avoid, Nasal antibiotic,No ETOH/ petroleum product on skin DOS, NPO,Post-op transportation,Pre -surgical wash,Sensory aids, Sturdy shoes/comfortable clothes,Do not bring valuables and remove jewelry
[2024-04-30 12:06] VITALS: BP 112/60; PULSE 75; RESP 16; TEMP 36.6; O2SAT 95
--- NOTE | 2024-04-30 14:02 | OT.IP.EVAL ---
Current Diagnoses Unilateral primary osteoarthritis, right hip (04/29/24) Presence of unspecified artificial hip joint (04/29/24) Surgery Performed Operation Date: 04/29/24 13:45 Actual Procedures p Total Hip Arthroplasty/Anterior Approach(Right) - Mindy Boles MD Past Medical History (Last Reviewed 04/29/24 @ 11:42 by Анна Flores RN) Anesthesia complication Anxiety BCC (basal cell carcinoma) Breast cancer, right breast (08/2018) Depression Easy bruising Former smoker History of headache Hx of small bowel obstruction (06/2019) Hyperlipidemia Hypertension Hypothyroidism Osteoarthritis Pain Surgical menopause Surgical History (Last Reviewed 04/29/24 @ 11:42 by Анна Flores RN) History of ankle surgery (1977) History of hysterectomy (~1992) History of left cataract surgery (11/25/15) History of lung surgery (06/2019) History of removal of Port-a-Cath (~2018) History of right cataract surgery (03/23/16) History of surgery (09/11/18) Hx of appendectomy Hx of hernia repair (~2016) Hx of hernia repair (~2017) Hx of lymph node excision (04/2019) Status post hernia repair (01/2015) Status post hernia repair (03/2014) Status post hernia repair (08/2013) Status post right foot surgery (11/2022) Occupational Therapy Inpatient Evaluation/Re-Eval M1 PT/OT-IP Prior Functional Status Start: 04/30/24 11:53 Freq: NEEDED Status: Active Protocol: Document 04/30/24 10:10 [facility] (Rec: 04/30/24 14:02 [facility] [id number]) Medical Review Prior Functional Status Medical History Reviewed Yes Communication able to make needs known Mobility and Gait pt stated that she was modified independent with all mobilities and ambulation using a SPC Activities of Daily Living and IADL's Pt states had pain but able to do her ADL and IADl needs. Social History Household Members family Living Arrangements House Number of Floors (Floors) Two Floors Number of Stairs To Enter/Railing? pt will be staying on main level of the house 2 steps R rail ascending to enter the house Home Environment High Toilet,Walk in Shower Home Equipment Front Wheel Walker,Straight Cane,Shower Seat with Backrest ,Hand Held Shower,Mining Technician,Sock Aid,Grab Bars In Shower Additional Social History Comment pt lives with her son and [id number]. DIL will be assisting pt at home. M2 OT-IP Current Condition Start: 04/30/24 13:51 Freq: Status: Active Protocol: Document 04/30/24 10:10 [facility] (Rec: 04/30/24 14:02 [facility] [id number]) Occupational Therapy Current Condition Current Condition Evaluation Date 04/30/24 Treatment Diagnosis S/P R EMERY anterior approach Diagnosis Onset Date 04/29/24 Post Operative Precautions Anterior Hip Precautions No Hip Extension,No Hip External Rotation M3 OT- IP Subjective and Pain Start: 04/30/24 13:51 Freq: Status: Active Protocol: Document 04/30/24 10:10 [facility] (Rec: 04/30/24 14:02 [facility] [id number]) OT- Subjective Occupational Therapy Visit Type Type Initial Evaluation Visit Start Time 10:10 Visit Stop Time 10:48 Occupational Therapy Visit Comments Patient Comments Pt agreed to get up for OT eval. Patient/Caregiver Goals To go home. OT Pain Assessment Pain When Pain Assessed At Rest Pain Present Pain Present Pain Reported Location Right Hip Intensity 2 Scale Used Numeric (0 - 10) M4 OT- IP ADL's Start: 04/30/24 13:51 Freq: Status: Active Protocol: Document 04/30/24 10:10 [facility] (Rec: 04/30/24 14:02 [facility] [id number]) OT [id number]-Flhi-Aznirgf General Evaluation Self-Feeding Ability Independent OT ADL-Grooming General Evaluation Grooming Ability Independent OT ADL-Oral Care General Eval Oral Care Ability Independent OT ADL-Dressing General Eval Lower Body Dressing Ability Minimal Assistance Comments OT Dressing Comments Able to show pt use of sock aid in order to clemente/doff socks. OT ADL-Toileting Comments OT Toileting Comments Educated pt to be mindful of her RLE positioning during toileting needs and that standing may be easier to do. Also use of wet-one and pads if needed. Pt could also benefit from a BSC as pt has to go to the bathroom several times at night. OT ADL-Bathing Comments OT Bathing Comments Spoke of care for the dressing while showering. M5 OT- IP IADL's Start: 04/30/24 13:51 Freq: Status: Active Protocol: Document 04/30/24 10:10 [facility] (Rec: 04/30/24 14:02 [facility] [id number]) OT-Instrumental Activities of Daily Living Deficits IADL Deficits Identified Deficits Home Safety Awareness Awareness of Need for Assistance at Home Good Awareness Ability to Problem Solve Emergency Able to Problem Solve Situations Home Safety Comments Pt has her family to assist as needed. Meal Preparation Meal Preparation Caregiver Provides Assist Laundry Or Dry Cleaners Counter Clerk Laundry Or Dry Cleaners Counter Clerk Caregiver Provides Assist M6 OT- IP Functional Cognition Start: 04/30/24 13:51 Freq: Status: Active Protocol: Document 04/30/24 10:10 [facility] (Rec: 04/30/24 14:02 [facility] [id number]) Cognitive Factors Limiting Selfcare Function Cognitive Ability Level of Alertness Alert Patient Orientation Name,Age,Birthday,Month,Date, Year,Day of Week,Place, Situation Attention Span Ability Capable of Focused Attention, Capable of Sustained Attention Ability to Follow Commands Able to Follow Multi-Step Commands Cognitive Comments Cognitive Assessment Comments Pt able to follow her anterior precautions for ADl and mobility needs. OT- Vision and Hearing OT- Hearing Assessment OT- Hearing Assessment WFL OT- Vision Assessment Visual Acuity WFL Visual Attentiveness WFL Occular Pursuits WFL Vision Assessment Comments Pt has glasses for distance. M7 OT- IP Mobility and Balance Start: 04/30/24 13:51 Freq: Status: Active Protocol: Document 04/30/24 10:10 [facility] (Rec: 04/30/24 14:02 [facility] [id number]) OT-Transfer Assessment Sit to and From Stand Sit to and from Stand Contact Guard Assistance Transfers Transfer Ability Standby Assistance Technique Transfer Destination Chair Devices Transfer Assistive Devices Gait Belt,Front Wheeled Walker Comments Mobility Comments CGA to SBA to stand and able to follow her anterior precautions with the FWW. Able to go over sleeping positioning and not to extend her hips. OT- Balance Assessment Sitting Balance and Reactions Static Sitting Balance Ability Normal Dynamic Sitting Balance Ability Good Standing Balance and Reactions Static Standing Balance Ability Good Dynamic Standing Balance Ability Good- M8 OT- IP Objective Assessments Start: 04/30/24 13:51 Freq: Status: Active Protocol: Document 04/30/24 10:10 [facility] (Rec: 04/30/24 14:02 [facility] [id number]) OT Gross Range of Motion Upper Extremity Range of Motion Assessment Within Functional Limits OT Strength Upper Extremity Strength Assessment Within Functional Limits M9 OT- IP Assessment and Plan Start: 04/30/24 13:51 Freq: Status: Active Protocol: Document 04/30/24 10:10 [facility] (Rec: 04/30/24 14:02 [facility] [id number]) OT Summary Assessment and Plan Potential Rehabilitation Potential Excellent Analytic Complexity at Evaluation Low Summary OT Impairments Pain,Functional Mobility, Dressing,Toileting,Bathing, Toilet Transfers,Shower Transfers Progress Towards Goals Progressing Toward Goals Assessment Summary Pt low complexity and main barrier is pain. Pt to have family be home to assist with her needs. Suggested pt may benefit from a BSC at home. Pt to go home with assist and have outpt PT. Goals Dressing Goal Independent,Long Handled Shoe Horn,Mining Technician,Sock Aid Toileting Goal Independent Bathing Goal Standby Assistance Toilet Transfer Goal Independent Shower Transfer Goal Standby Assistance Days to Meet Goals 2 Frequency of Treatment Frequency Of Treatment Once a Day Treatment Plan OT Treatment Plan ADL Training,Functional Mobility,Patient/Family Education,Discharge Planning Discharge Recommendations OT Discharge Recommendations Home with Assistance, Outpatient PT Transportation Needs at Discharge Private Vehicle
--- NOTE | 2024-04-30 14:11 | P.DS_ITS ---
History of Present Illness History of Present Illness Date Patient Seen: 04/30/24 Time Patient Seen: 14:11 Chief complaint: Right EMERY *OPB* Narrative: Operative Date/Time/Diagnoses Date of procedure: 04/29/24 Time of procedure: 13:50 Pre-op diagnosis: Right hip OA with some AVN Post-op diagnosis: same Procedure & Clinicians Procedure: Right total hip arthroplasty anterior approach Same procedure as scheduled: Yes Indications: The patient has had progressively worsening right hip pain with radiographic changes consistent with arthritis. Non-operative management has failed and the patient has requested total hip replacement. The risks, benefits and alternatives to surgery were discussed with the patient prior to proceeding. Risks discussed included, but were not limited to, failure to relieve pain, leg length discrepancy, dislocation, stiffness, infection, nerve damage, deep venous thrombosis, pulmonary embolism, stroke, coma, heart attack, permanent paralysis and , as well as the potential need for eventual revision of the prosthetic. 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, adequate but soft bone Closure Type: primary Prosthetic devices, grafts, tissues, transplants, or devices: [employer] R3 size 54 cup, neutral poly liner,one 6.5 mm screw, size 1 standard offset polar stem, 36 x +0 femoral head Estimated Blood Loss (mL): 250 Blood products transfused: none Discharge Providers Provider Discharge Date: 04/30/24 Primary care physician: Pattie Contreras Consults: 04/29/24 06:00 Consult to Anesthesiology Routine Comment: Consulting Provider: Anesthesiologist Reason for consultation: Regional block for post operative pain control 04/29/24 16:40 Consult to Discharge Planning Routine Comment: Consult to Occupational Therapy Evaluate & Treat Comment: Physician Instructions: Evaluate and treat Consult to Physical Therapy Evaluate & Treat Comment: Physician Instructions: post op EMERY protocol Discharge provider: Sandra Florez PA-C Summary Hospital Course Discharge Diagnosis: Right hip osteoarthritis, s/p right total hip arthroplasty Hospital Course: Ms Rios's hospital course was unremarkable. On the morning of POD# 1, she was very hesitant to go home, but after working w/ PT and nursing throughout the day, she felt more confident by the afternoon. She was eating and voiding without difficulty and her pain was well controlled with oral medication; she prefers tramadol to oxycodone. Exam Vital Signs (past 8 hours): - 04/30/24 07:00 04/30/24 08:00 04/30/24 12:06 Temperature 97.7 F 97.8 F Pulse Rate 69 75 Respiratory Rate 16 16 Blood Pressure 120/62 112/60 Pulse Oximetry 95 95 Oxygen Delivery Method Room Air Oxygen Flow Rate 0 0 Oxygen Delivery Method Room Air Oxygen Flow Rate 0 Narrative Exam Narrative: Unchanged since AM exam. Objective Labs 04/30/24 04:22 Labs: Laboratory Results - last 24 hr 04/30/24 04:22 Hgb 12.3 Hct 35.1 L PFSH Medical History Anesthesia complication Anxiety Depression Easy bruising BCC (basal cell carcinoma) Osteoarthritis Hx of small bowel obstruction (06/2019) Breast cancer, right breast (08/2018) Pain History of headache Surgical menopause Former smoker Hyperlipidemia Hypertension Hypothyroidism Surgical History (Updated 04/30/24 @ 07:11 by Sandra Florez PA-C) Hx of appendectomy History of ankle surgery (1977) Hx of lymph node excision (04/2019) History of lung surgery (06/2019) Status post right foot surgery (11/2022) Hx of hernia repair (~2017) Hx of hernia repair (~2016) History of removal of Port-a-Cath (~2018) History of surgery (09/11/18) History of right cataract surgery (03/23/16) History of left cataract surgery (11/25/15) Status post hernia repair (08/2013) Status post hernia repair (03/2014) History of hysterectomy (~1992) Status post hernia repair (01/2015) Family History Father Hypertension Mother Stroke Liver cancer Gallstones Heart disease Social History household members: family Smoking Status: Former smoker second hand exposure: No alcohol intake: current substance use type: does not use Discharge Assessment & Plan Assessment and Plan Assessment: Right hip osteoarthritis, s/p right total hip arthroplasty Plan of Treatment: Discharge home after caregiver training w/ PT, multimodal pain control, outpt PT, f/u in office as scheduled. Discharge Plan Discharge Plan Patient Disposition: Home Discharge orders & Medications Discharge Orders: Discharge (Order); Ordered 04/30/24 Ordered By: Sandra Florez Prescriptions: New tramadol 50 mg Tablet 50 mg PO QID PRN (Reason: Pain, Moderate (4-10)) Qty: 30 0RF Continued Calcium/Vitamin D3 See Rx Instructions .ROUTE .COMPLEX Patient Comments: daily Rx Instructions: 1 TAB PO every other day. dorzolamide-timolol [Cosopt] 2 %/0.5 % drops 1 drp OPHTH BID Qty: 0 GLUC PETERSEN DIPO CH/VLADIMIR EPTERSEN/C/TORIE (Glucosamine-Chondroitin Capsul) 1 cap PO Q DAY Qty: 0 cholecalciferol (vitamin D3) [Vitamin D3] 50 mcg (2,000 unit) Capsule 50 mcg PO DAILY Qty: 0 multivitamin Tablet 1 tab PO DAILY Qty: 0 ibuprofen [Advil] 200 MG tablet 400 mg PO BID Qty: 0 levothyroxine [Synthroid] 175 mcg tablet 175 mcg PO QDAY Qty: 90 0RF triamterene-hydrochlorothiazid 37.5-25 mg Tablet 1 tab PO DAILY PreserVision AREDS-2 250-90-40-1 mg Capsule 1 tab PO BID Follow up/Referrals: Pattie Contreras PA-C [Primary Care Provider] - Mindy Boles MD [Physician] - 05/12/24 11:30 am (Follow up w/ Genevieve Pringle PA-C, at [facility] in [place].) Diet/Activity/Treatments Diet: Diet as Tolerated Activity: Weightbearing as tolerated. Anterior hip precautions. Cold/Heat Therapy: Ice to hip as needed for pain. Skin/Wound/Dressing Care Report to your healthcare provider any signs of infection, such as:: chills, fever, night sweats, unusual drainage and unusual redness Dressing: May shower. Keep dressing in place until follow up in office. No bathing or otherwise soaking incision. Call the office if the dressing becomes saturated inside. Visit Report/Discharge Packet Instructions: DI for Hip Replacement, DI for Prescription Opioid Use Stand Alone Forms: Patient Portal/API, Surgery Discharge Discharge Data Primary Care Provider: Pattie Contreras Attending Provider: Mindy Boles
--- NOTE | 2024-04-30 15:00 | PT.IPTN ---
Current Diagnoses Unilateral primary osteoarthritis, right hip (04/29/24) Presence of unspecified artificial hip joint (04/29/24) Surgery Performed Operation Date: 04/29/24 13:45 Actual Procedures p Total Hip Arthroplasty/Anterior Approach(Right) - Mindy Boles MD Physical Therapy Treatment Note M2 PT-IP Current Condition Start: 04/30/24 11:53 Freq: NEEDED Status: Active Protocol: Document 04/30/24 08:50 AB (Rec: 04/30/24 12:12 AB [id number]) Physical Therapy Current Condition Current Condition Evaluation Date 04/30/24 Treatment Diagnosis s/p R EMERY anterior; difficulty in walking Onset Date 04/29/24 M3 PT-IP Subjective Start: 04/30/24 11:53 Freq: NEEDED Status: Active Protocol: Document 04/30/24 15:00 AB (Rec: 04/30/24 16:15 AB [id number]) Subjective Physical Therapy Visit Type Type Treatment Note Visit Start Time 15:00 Visit Stop Time 15:35 Number of COMPENSATION ADJUSTER Visits 0 Physical Therapy Visit Comments Patient Comments agreeable to do PT M4 PT-IP Mobility and Gait Start: 04/30/24 11:53 Freq: NEEDED Status: Active Protocol: Document 04/30/24 15:00 AB (Rec: 04/30/24 16:15 AB [id number]) PT-Bed Mobility Assessment Supine to Sit Supine to Sit Maximum Assistance Sit to Supine Sit to Supine Minimal Assistance PT-Transfer Assessment Sit to and From Stand Sit to and from Stand Contact Guard Assistance,1 Person Assistance,Use of Upper Extremities Equipment Transfer Assistive Device Gait Belt,Front Wheeled Walker Orthotic/Prosthetic Devices or Brace: No Transfers Transfer Destination Bed,Chair Transfer Technique ambulated Transfer Ability Level of Assist Contact Guard Assistance,1 Person Assistance,Use of Upper Extremities Comments Mobility Comments pt sitting on the chair. pt's son in room for caregiver training. educated pt's son regarding pt's anterior hip precautions. educated pt's son how to use safety belt and how to assist pt. son was able to put safety belt on pt and assisted pt with sit to stand CGA. pt ambulated using FWW to EOB ~ 12 ft CGA with son assisting. bed mobility training. PT educated pt and son on how to complete bed mobility. pt completed sit to supine min A for LE elevation. son was able to assist pt. pt completed supine to sit max A and max cues and son was able to assist pt. pt agreed to do stairs. completed sit to stand from EOB with son assisting and pt ambulated in the hallway ~ 50 ft using fWW CGA. PT educated pt on how to do car transfers. Stair climbing training. PT educated and demonstrated to pt and family on how to do stairs. pt completed up/down step holding on to R rail with B hands mod to max A and max cues for R quads stabilization . son was able to assist pt safely. assisted pt back to her room. ambulated from w/c to chair using FWW with son assisting. Left pt with family in room. pt and family without further concerns. Gait Assessment Gait Gait Assistance Required: Contact Guard Assist Distance (Feet) 50 Able to Maintain Weight Bearing Status Yes During Gait Assistive Devices Assistive Device Gait Belt,Front Wheeled Walker Orthotic/Prosthetic Devices or Brace: No Gait Deviations General Gait Pattern Antalgic,Decreased Feet Clearance Factors Limiting Gait Function Factors Limiting Gait Function Decreased Activity Tolerance, Decreased Strength,Difficulty Following Directions,Limited Range of Motion,Pain,Poor Balance,Poor Safety Awareness Stair Climbing Assessment Evaluation Level of Assist On Stairs Moderate Assistance,Maximal Assistance,1 Person Assistance Devices Stair Climbing Assistive Devices Right Railing Technique/Endurance Stair Climbing Direction Ascend and Descend Stair Climbing Technique Step to Step Number of Steps Climbed 3 Stair Climbing Set # Repetitions (reps) 1 M5 PT-IP Objective Assessments Start: 04/30/24 11:53 Freq: NEEDED Status: Active Protocol: Document 04/30/24 08:50 AB (Rec: 04/30/24 12:12 AB [id number]) Orientation Orientation/Cognition Level of Alertness Alert Orientation Name,Place,Situation Language Function Ability No Deficits Noted Safety Awareness Decreased Safety Awareness Memory Description Short Term Impaired Comments with slight confusion Gross Range of Motion Lower Extremity ROM Assessment Within Functional Limits Strength Lower Extremity Strength Assessment Right Impaired Hip 2+/5 Knee 3+/5 Coordination Assessment Gross Coordination Gross Coordination WNL Sensation Assessment Sensation Gross Sensation WNL Muscle Tone Muscle Tone WNL Yes M6 PT-IP Treatment Start: 04/30/24 11:53 Freq: NEEDED Status: Active Protocol: Document 04/30/24 15:00 AB (Rec: 04/30/24 16:15 AB [id number]) Physical Therapy Treatment Education Education Provided Precautions,Safety M7 PT-IP Assessment and Plan Start: 04/30/24 11:53 Freq: NEEDED Status: Active Protocol: Document 04/30/24 15:00 AB (Rec: 04/30/24 16:15 AB [id number]) PT Summary Assessment and Plan Potential Rehabilitation Potential Fair Summary Impairments Pain,ROM,Strength,Balance, Coordination,Sensation,Tone, Cognition,Bed Mobility, Transfers,Gait,Activity Tolerance Progress Towards Goals Slow Progress due to Activity Tolerance Assessment Summary caregiver training completed and pt's family was able to assist pt safely. pt plans to go home later today and may go home when medically stable. Goals Bed Mobility Goal Standby Assistance Transfer Goal Standby Assistance,Front Wheeled Walker Gait Goal Standby Assistance,Front Wheel Walker Gait Distance 150 Other Goals improve bed mobility, transfers, ambulation using FWW ~ 250 ft mod I up/down 2 steps R rail ascending SBA Days to Meet Goals 5 Frequency of Treatment Frequency Of Treatment Twice a Day Treatment Plan Physical Therapy Treatment Plan Bed Mobility Training,Transfer Training,Gait Training, Therapeutic Exercise,Balance Retraining,Post Op Education, Discharge Planning,Hot or Cold Pack,Neuromuscular Re-ed, Coordination Retraining,Manual Therapy Precautions Anterior Hip Precautions No Hip Extension,No Hip External Rotation Weight Bearing Status Weight Bearing Status Weight Bear as Tolerated Allowed Weight Bearing Amount (enter % RLE WBAT or #) (%) Recommendations To Nursing Amount of Assist Needed 1 Person Assist Discharge Recommendations PT Discharge Recommendations Home with 04/06 Assist Available,Outpatient PT Transportation Needs at Discharge Private Vehicle
--- NOTE | 2024-04-30 16:23 | PC.NURSE ---
Pt discharged at 1615, escorted off floor in wheelchair accompanied by family and hospital staff. IV removed, discharge teaching completed including new medications, wound care and follow up appointments. Questions answered and concerns addressed. Patient left the floor with all belongings.
== END 2024-04-30 16:30 | disposition home or self-care (01) ==
LOC: OR 12:03 → AC 12:06
PROVIDERS: PCP Physician Assistant; Referring Provider Orthopaedic Surgery; Visit Provider Orthopaedic Surgery
PROC: (CPT 27130; principal; 2024-04-29 13:45)
DX: M16.11 Unilateral primary osteoarthritis, right hip (principal); M87.051 Idiopathic aseptic necrosis of right femur; M25.751 Osteophyte, right hip
CPT/HCPCS: 27130; 36415; 73502; 73503; 76000; 82962; 85014; 85018; 97162; 97165; 97530; 97535; C1776; C9290; J0171; J0690; J2704; J3010

== ENCOUNTER → 2024-10-16 11:48 | Outpatient (CLI) | payer MEDICARE, OTHER, SELFPAY ==
[2024-04-29 12:15] VITALS: BMI 23.4
--- NOTE | 2024-10-16 11:49 | DI.MG.S_ITS ---
BILATERAL DIGITAL SCREENING MAMMOGRAM 3D/2D WITH CAD POST LUMPECTOMY: 10/16/2024 CLINICAL: Routine screening. Personal history of right breast cancer. Comparison is made to exams dated: 07/17/2023 mammogram, 07/13/2022 mammogram, and 07/11/2021 mammogram - [facility]. There are scattered areas of fibroglandular density (category b / 25%-50% glandular tissue). Current study was also evaluated with a Computer Aided Detection (CAD) system. There are benign vascular calcifications in both breasts. There also are benign post operative findings in the right breast. No significant masses, calcifications, or other findings are seen in either breast. There has been no significant interval change. IMPRESSION: BENIGN There is no mammographic evidence of malignancy. A 1 year screening mammogram is recommended. This exam was interpreted at Station ID: [id number]. NOTE: For mammograms, a report in lay terms will be sent to the patient. Approximately 15% of breast malignancies will not be visualized mammographically. In the management of a palpable breast mass, a negative mammogram must not discourage biopsy of a clinically suspicious lesion. Electronically Signed By: Rocío Dalal M.D., Ph.D. sonja/mike:10/18/2024 01:41:54 copy to: INESSA GAYLE copy to: Pattie Contreras letter sent: Normal Exam ACR BI-RADS Category 2: Benign
== END ==
PROVIDERS: PCP Physician Assistant; Visit Provider Physician Assistant
DX: Z12.31 Encounter for screening mammogram for malignant neoplasm of breast (principal); Z85.3 Personal history of malignant neoplasm of breast
CPT/HCPCS: 77063; 77067

== ENCOUNTER → 2025-03-24 12:10 | Outpatient (CLI) | payer MEDICARE, OTHER, SELFPAY ==
[2024-04-29 12:15] VITALS: BMI 23.4
--- NOTE | 2025-03-24 12:12 | DI.CT.S_ITS ---
PROCEDURE: CT CHEST WO CON INDICATIONS: MALIG DENI RT BREAST,ESTROGEN REC POSITIVE TECHNIQUE: Noncontrast 5 mm thick sections acquired from the pulmonary apices to the posterior costophrenic angles. 1 mm lung window, 5 mm thick coronal and sagittal and 7 mm axial MIP reformats were then acquired. For radiation dose reduction, the following was used: automated exposure control, adjustment of mA and/or kV according to patient size. COMPARISON: [facility], CT, CT CHEST WO CON, 03/04/2024, 13:04. FINDINGS: Image quality: Diagnostic. Lower Neck: No enlarged lymph nodes. Thyroid: No thyroid nodules which require sonographic follow up, per consensus guidelines. Axillae: No enlarged lymph nodes. Chest Wall: Unremarkable. Bones: Unremarkable. Lungs and Pleura: No pneumothorax or pleural effusions. Stable appearance of surgical sutures as well as linear parenchymal densities in the right middle lobe. Stable subcentimeter nodule in the right lower lobe posterosuperiorly, most likely benign. No new consolidation or other focal lesion seen. Mild bronchiectasis with endobronchial mucous impaction again seen in the lingula. Heart: Heart size is normal. No pericardial effusion. Thoracic Vessels: The aorta and pulmonary arteries demonstrate normal size. Mediastinum and Ellie: No enlarged lymph nodes. Esophagus: No wall thickening. No hiatal hernia. Upper Abdomen: Visualized upper abdomen solid organs and bowel loops appear normal. IMPRESSION: Stable postoperative changes in the right middle lobe. No new suspicious focal lesion seen. Dictated by: Bandar Osborn M.D. on 03/24/2025 at 14:23 Approved by: Bandar Osborn M.D. on 03/24/2025 at 14:28
== END ==
LOC: CT 12:11
PROVIDERS: PCP Physician Assistant; Referring Provider Internal Medicine Hematology & Oncology; Visit Provider Internal Medicine Hematology & Oncology
DX: C50.911 Malignant neoplasm of unspecified site of right female breast (principal); Z17.0 Estrogen receptor positive status [ER+]; R91.1 Solitary pulmonary nodule; J47.9 Bronchiectasis, uncomplicated
CPT/HCPCS: 71250